=== PATIENT | female | born 1960 | race Caucasian/White ===

== ENCOUNTER → 2024-04-21 07:00 | Outpatient (BNV) | payer MEDICAID, SELFPAY | PROVIDERS: Admitting Provider Internal Medicine Pulmonary Disease; Emergency Provider Internal Medicine; Visit Provider Internal Medicine Cardiovascular Disease | DX: I35.2 Nonrheumatic aortic (valve) stenosis with insufficiency (principal); I34.81 Nonrheumatic mitral (valve) annulus calcification; I46.9 Cardiac arrest, cause unspecified; I27.20 Pulmonary hypertension, unspecified | CPT/HCPCS: 93306 ==

== ENCOUNTER 2024-04-21 08:02 | Inpatient (IN) | payer MEDICAID, OTHER, SELFPAY ==
[2024-04-21] VITALS (42 sets, daily range): BP systolic 81–211; BP diastolic 43–86; PULSE 49–82; RESP 18–26; TEMP 33–37.5; O2SAT 93–100; BMI 27.2
--- NOTE | ~2024-04-21 | XR_ITS ---
EXAMINATION: XR CHEST CLINICAL INFORMATION: Low tidal volume COMPARISON: 04/21/2024 and selected prior TECHNIQUE: AP portable semiupright view of the chest was obtained. FINDINGS: Endotracheal tube tip midline approximately 3 cm above viky. Right IJ central venous catheter tip at cavoatrial junction. Enteric tube passes beneath diaphragm with side port at expected level of the EG junction. Grossly stable lung volumes, apparent decrease on the right likely due to patient rotation. Bilateral hilar prominence and perihilar opacities slightly improved. Suspect improving edema. Loss of clarity of right diaphragm, suspect developing trace effusion. No pneumothorax. Nonobstructive gas pattern. No acute osseous finding. XR/XR chest 1V IMPRESSION: Favor improving pulmonary edema. Electronically signed by: Bryant Beckett MD 04/22/2024 10:41 AM EDT
--- NOTE | ~2024-04-21 | CT_ITS ---
EXAMINATION: CT HEAD WITHOUT CONTRAST CLINICAL INFORMATION: Altered mental status COMPARISON: None available. TECHNIQUE: Contiguous axial imaging was performed from the skull base to vertex without intravenous administration of contrast. This CT examination was performed using dose optimization techniques as appropriate, variously including the following: *Automated exposure control *Adjustment of mA and/or kV according to patient size (this includes techniques or standardized protocols for targeted exams where dose is matched to indication/reason for exam; i.e. extremities or head) *Use of iterative reconstruction technique DLP: 1612 mGy-cm FINDINGS: There is no evidence of acute intracranial hemorrhage, however, there is apparent loss of aly-white differentiation concerning for hypoxic ischemic injury. No abnormal mass effect or midline shift is appreciated. No extra-axial fluid collections. The ventricular system and cortical sulci are mildly prominent, consistent with age-appropriate volume loss. There are areas of low density in the periventricular and subcortical white matter, most consistent with sequelae of microvascular ischemic change. Soft tissues and osseous structures are unremarkable. There are calcifications of the cavernous internal carotid arteries. Stent noted within the left cavernous ICA. Several opacified ethmoid air cells. Other visualized paranasal sinuses and mastoid air cells are well aerated. CT/CT head/brain wo IV con IMPRESSION: Apparent loss of aly-white differentiation concerning for hypoxic ischemic injury. Clinical correlation recommended. Further evaluation with MRI or follow-up CT imaging likely warranted. Electronically signed by: Be Suggs MD 04/21/2024 11:11 AM EDT
--- NOTE | ~2024-04-21 | CT_ITS ---
EXAMINATION: CT ANGIOGRAM CHEST CLINICAL INFORMATION: Shortness of breath. Altered mental status. Cardiac arrest. COMPARISON: Chest x-ray 04/21/2024. TECHNIQUE: Multiple axial images were obtained through the chest after the administration of 85 mL of Omnipaque 350 intravenous contrast. Extensive vascular post-processing including two-dimensional and three-dimensional reformatted images were created and reviewed on an independent workstation. This CT examination was performed using dose optimization techniques as appropriate, variously including the following: *Automated exposure control *Adjustment of mA and/or kV according to patient size (this includes techniques or standardized protocols for targeted exams where dose is matched to indication/reason for exam; i.e. extremities or head) *Use of iterative reconstruction technique DLP: 352 mGy-cm FINDINGS: Contrast bolus: Satisfactory. Pulmonary arteries: Overlying ECG leads and arms at sides result in significant artifact. No large central or segmental pulmonary emboli. Sensitivity for subsegmental emboli reduced. Lungs: Bronchial wall thickening. Multifocal patchy and confluent consolidation in the posterior upper and lower lungs bilaterally. Aspiration pneumonia is a consideration. Endotracheal tube tip 2 cm above viky. Aorta: Moderate atherosclerotic peripheral vascular disease. No obvious aneurysm or dissection on dextro phase imaging. Coronary arteries: Moderate coronary artery disease. Mediastinum: No mass or adenopathy. Cardiomegaly. No evidence of LV strain. Pleura: Trace pleural effusions bilaterally. No pericardial effusion. No pneumothorax. Chest wall: No obvious mass or adenopathy. Bubble of air in the right anterior chest wall is likely venous. Upper abdomen: Reflux of contrast into the IVC and hepatic veins indicates increased right heart pressures. Nasogastric tube tip in the body of the stomach. Atherosclerotic peripheral vascular disease. Colonic diverticulosis. Osseous structures: No rib fracture. Left L5 sclerotic lesion likely a bone island. CT/CT angio chest PE protocol IMPRESSION: 1. No pulmonary embolism identified. Exam is degraded by artifact. 2. Extensive bilateral predominantly dependent lung consolidation with thick-walled airways. Aspiration pneumonia is a concern. 3. Increased right heart pressures with reflux of contrast into the IVC and hepatic veins. Consider echocardiography. Fleischner guidelines were followed. Electronically signed by: Bryant Beckett MD 04/21/2024 10:51 AM EDT
--- NOTE | ~2024-04-21 | XR_ITS ---
EXAMINATION: XR CHEST CLINICAL INFORMATION: Central line placement COMPARISON: Chest x-ray earlier this morning TECHNIQUE: Frontal view of the chest was obtained. FINDINGS: Endotracheal tube terminates approximately 3.6 cm above the level the viky. Enteric tube terminates below the level of the diaphragm. Interval insertion of right-sided jugular catheter which terminates within the distal SVC. The cardiac silhouette is enlarged. Atherosclerotic disease of the aortic arch. The lungs are well aerated. There is patchy bilateral airspace disease. There is no gross pleural effusion. No pneumothorax. XR/XR chest 1V IMPRESSION: 1. Support apparatus in expected position. 2. Interval insertion of right-sided jugular catheter which terminates within the distal SVC. Electronically signed by: Be Suggs MD 04/21/2024 11:38 AM EDT
--- NOTE | ~2024-04-21 | CT_ITS ---
EXAMINATION: CT ABDOMEN AND PELVIS WITH CONTRAST CLINICAL INFORMATION: Abdominal distention. Cardiac arrest. Altered mental status. Shortness of breath. COMPARISON: Today's CT angiography. TECHNIQUE: Multidetector volumetric images were obtained from the superior aspect of the liver through the pubic symphysis following administration 100 mL of Omnipaque 350 intravenous contrast. Sagittal and coronal reformatted images were obtained on the technologist's workstation. Oral contrast: No This CT examination was performed using dose optimization techniques as appropriate, variously including the following: *Automated exposure control *Adjustment of mA and/or kV according to patient size (this includes techniques or standardized protocols for targeted exams where dose is matched to indication/reason for exam; i.e. extremities or head) *Use of iterative reconstruction technique DLP: 549 mGy-cm FINDINGS: LUNG BASES: Bibasilar consolidation and trace effusions. Mitral valve annular calcifications. Coronary calcifications. LIVER, GALLBLADDER, AND BILIARY TREE: Reflux of contrast into the IVC and hepatic veins indicates increased right heart pressures. Patchy hepatic attenuation raising the possibility of congestive hepatopathy. Correlate with liver function studies. Trace ascites. Gallbladder: The gallbladder wall is markedly thickened and edematous. There is a stone impacted in the gallbladder fundus. Clinical correlation advised to exclude acute cholecystitis. There is periportal fat stranding. No obvious biliary ductal dilation. No pneumobilia. PANCREAS: Uniform pancreatic enhancement without ductal dilation or mass. No convincing evidence of pancreatitis with fat stranding predominating in the cara hepatis and around vascular structures. SPLEEN: Unremarkable. ADRENAL GLANDS: A 11 mm enhancing left adrenal mass (series 27 image ). Recommend adrenal protocol CT. Normal right adrenal gland. KIDNEYS AND URETERS: Symmetric renal function without hydronephrosis. Subcentimeter cortical hypodensities too small to characterize further. BLADDER: A balloon tip catheter is coiled within the urinary bladder, air is presumably iatrogenic GASTROINTESTINAL TRACT: Sigmoid predominant diverticulosis. No convincing evidence of diverticulitis. Mild small bowel dilation without transition point to suggest obstruction. Mesenteric fat stranding. Favor ileus. Attention on follow-up. Trace ascites. No free intraperitoneal air. ABDOMINAL WALL: No significant hernia is appreciated. LYMPH NODES: Normal. VASCULAR: Moderate atherosclerotic peripheral vascular disease. PELVIC VISCERA: The patient appears to be status post hysterectomy. No adnexal mass. There is a venous gas in the right groin, clinical correlation advised. OSSEOUS STRUCTURES: A small sclerotic lesion in the anterior left fifth rib likely a bone island. No definite displaced rib fractures with history of cardiac arrest. CT/CT abdomen pelvis w IV con IMPRESSION: 1. Heterogeneous hepatic enhancement with periportal and pericholecystic edema and fat stranding. Suspect congestive hepatopathy. Correlate with liver function studies. Consider right upper quadrant ultrasound. 2. Cholelithiasis. Thick-walled gallbladder. No biliary ductal dilation. Cannot exclude acute cholecystitis. 3. Mildly dilated small bowel loops with mesenteric fat stranding. No transition point to suggest obstruction. Favor ileus. 4. Bibasilar lung consolidation and effusions. Suspect aspiration pneumonia. Fleischner guidelines were followed. Electronically signed by: Bryant Beckett MD 04/21/2024 10:40 AM EDT
--- NOTE | ~2024-04-21 | XR_ITS ---
EXAMINATION: XR CHEST CLINICAL INFORMATION: OG placement COMPARISON: 06/16/2017 TECHNIQUE: AP supine portable view of the chest was obtained. FINDINGS: Enteric tube passes beneath diaphragm with side port below the level of the diaphragm. Endotracheal tube tip midline projecting 2 cm above viky. Diffuse nonspecific increase in lung markings. No effusion or pneumothorax. Increased prominence of the heart and mediastinum. XR/XR chest 1V IMPRESSION: Enteric tube passes beneath diaphragm. Prominent heart, mediastinum and central vasculature on supine imaging. Electronically signed by: Bryant Beckett MD 04/21/2024 09:32 AM EDT
--- NOTE | 2024-04-21 07:00 | CA_ITS ---
Transthoracic Echocardiogram Patient (Last, First, Middle): Oumou Laura, Gender: Female Date of : 1960 Age: 64 Procedure Date: 04/21/2024 Procedure Type: Transthoracic Echocardiogram Location: ICU Height: 162.56 cm Weight: 72.01 kg BSA: 1.77 m2 Heart Rate: bpm BP: 175 / 73 mmHg Psychological Tests Sales Agent: ZEE Myers MD: Tony Stiles MD Symptoms: s/p cardiac arrest Study Quality: Technically Difficult/Contrast Conclusions: - Normal left ventricular cavity size. There is moderately increased left ventricular wall thickness. The left ventricular systolic function is hyperdynamic. The visually estimated ejection fraction is >70%. - Elevated filling pressures. - Normal right ventricular cavity size and systolic function. - The left atrium is mildly dilated. - There is mild aortic valve stenosis. There is mild to moderate aortic valve regurgitation. - Normal right atrial pressure. Moderate pulmonary hypertension is present. Findings Procedure Information Contrast agent, definity, is being given per protocol without apparent complications. Left Ventricle Normal left ventricular cavity size. There is moderately increased left ventricular wall thickness. The left ventricular systolic function is hyperdynamic. The visually estimated ejection fraction is >70%. There is no evidence of regional wall motion abnormalities. Abnormal diastolic function is noted. Spectral Doppler is indicative of an impaired relaxation filling pattern. Elevated filling pressures. Right Ventricle Normal right ventricular cavity size and systolic function. Atria The left atrium is mildly dilated. Aortic Valve There is a normal trileaflet aortic valve. There is mild aortic valve stenosis. There is mild to moderate aortic valve regurgitation. Mitral Valve There is moderate mitral annular calcification. There is no mitral valve regurgitation. There is no mitral valve stenosis. Pulmonic Valve The pulmonic valve was not well visualized. Tricuspid Valve Normal tricuspid valve structure. There is trace tricuspid valve regurgitation. The right ventricular systolic pressure is 55 mmHg. Normal right atrial pressure. Moderate pulmonary hypertension is present. Great Vessels All visible segments of the aorta are normal in size. Venous The inferior vena cava is normal in size and collapses greater than 50% with inspiration. Pericardium/Pleural There is no evidence of pericardial effusion. Prior Study Comparison No prior study available for comparison. Measurements 2D Linear Measurements IVSd: 1.26 0.6-0.9/0.6-1.0 cm LVIDd: 3.93 3.9-5.3/4.2-5.9 cm LVIDd Index: 2.22 2.4-3.2/2.2-3.1 cm/m2 LVIDs: 2.62 2.0-3.6 cm LVPWd: 1.34 0.7-1.1 cm Ao Root: 2.70 2.1-3.5 cm LA Diam: 4.20 2.7-3.8/3.0-4.0 cm LAIDs Index: 2.37 1.5-2.3 cm/m2 LV Mass: 226.46 67-162/88-224 g LV Mass Index: 127.94 43-95/49-115 g/m2 LVOT Diam: 2.00 3.0+(-)1.3 cm Mitral Valve MV VTI: 0.58 MV Pk Dami: 1.79 MV Mn Dami: 1.24 MV Pk Grad: 13.00 MV Mn Grad: 7.00 MV Pk E: 1.63 MV PK A: 1.22 MV Decel Time: 340.00 E/A: 1.30 E'Lateral: 4.35 E'Medial: 4.35 E/E' Med: 37.50 E/E' Lat: 37.50 PHT: 100.00 MVA PHT: 2.20 MVA Continuity: 1.92 Decel [place]: 4.80 Aortic Valve AoV Pk Dami: 2.37 AoV Mn Dami: 1.38 AoV VTI: 0.53 AoV Pk Grad: 22.00 Aov Mn Grad: 9.00 LAURA Cont.VTI: 2.10 AI Pk Dami: 4.78 AI [place]: 2.73 LVOT LVOT Pk Dami: 1.58 LVOT Mn Dami: 1.09 LVOT VTI: 0.35 LVOT Pk Grad: 10.00 LVOT Mn Grad: 5.00 LVOT Diam: 2.00 LVOT Area: 3.14 Diastolic Function MV Pk E: 1.63 MV Pk A: 1.22 E/A: 1.30 E'Medial: 4.35 E/E' Med: 37.50 E' Laterial: 4.35 E/E' Lat: 37.50 Right Ventricle TAPSE (mm): 23.00 TVS' Dami: 5.77 Tricuspid Valve TR Pk Dami: 3.41 TR Pk Grad: 47.00 RA Press: 8.00 RVSP: 55.00 Great Vessels Aorta Ao Root-2D: 2.70 2.0-3.7 cm Ao Asc: 2.60 2.1-3.4 cm Updated in Other Vendor System with Status of Final Juan Jose Vincent MD electronically signed on 04/21/2024 2:20:17 PM with status of Final
--- NOTE | 2024-04-21 08:03 | MHC.EDTECH ---
BROUGHT IN BY CHAPIS TERESA...NOT GIOVANNI, IT WAS THIS WRITERS ERROR. VINIB
[2024-04-21] MEDS: Etomidate 20 MG/10 ML VIAL IVPUSH (08:09)
[2024-04-21] MEDS: Rocuronium Bromide 50 MG/5 ML VIAL IVPUSH (08:09)
[2024-04-21] MEDS: Magnesium Sulfate/H2O 2 GM/50 ML PIGGYBACK IV (08:20)
--- NOTE | 2024-04-21 08:24 | ECG_ITS ---
Test Reason : CARDIAC ARREST Blood Pressure : / mmHG Vent. Rate : 071 BPM Atrial Rate : 000 BPM P-R Int : 000 ms QRS Dur : 104 ms QT Int : 486 ms P-R-T Axes : 000 005 097 degrees QTc Int : [address] & T wave abnormality, consider lateral ischemia Prolonged QT Abnormal ECG When compared with ECG of 05-MAY-2017 13:30, Atrial fibrillation has replaced Sinus rhythm QRS duration has increased Non-specific change in ST segment in Lateral leads QT has lengthened Referred By: Tony Stiles Electronically Signed By:ALICE TRONCOSO
[2024-04-21] MEDS: methylPREDNISolone Sod Succ 125 MG/2 ML VIAL IVPUSH (08:26)
--- NOTE | 2024-04-21 08:33 | PC.NURSE ---
patient 72kg. 5'2
--- NOTE | 2024-04-21 08:41 | PC.RT ---
Pt came in via EMS, OPA estabished, being bag valve mask ventilated, CPR in progress. ACLS care provided by [facility] ER staff. Pt intubated by CELESTE on first attempt w/ 7.5 ETT 22cm at the lip. Tube confirmed w/ bilateral breath sounds, condensation in tube, increase in O2 SATs, and colormetric CO2. Airway appeared edematous through glidescope. Pt bag ventilated by RT while ACLS care continued. Pt regained pulses, CPR was ceased and post resuscitative care was initiated. Pt was transfered to mechanical ventilation and faraz settings well. CXR taken and tube position confirmed.
[2024-04-21] MEDS: Norepinephrine Bitartrate/D5W 8 MG/250 ML PLAST..BAG 6.75 MG IVCONT (08:44)
--- NOTE | 2024-04-21 08:53 | ED_ITS ---
HPI - General Adult General Chief complaint: Cardiac Arrest/CPR Stated complaint: CARDIAC ARREST,ASYSTOLE,WITNESSED BY FAMILY Time Seen by Provider: 04/21/24 08:41 Source: EMS and other ([facility] ) Mode of arrival: EMS Limitations: other History of Present Illness ED Provider: Georges HPI narrative: This is a 64 yo f hx of anxiety, depression, cerebral aneurysm, hld, hypertrophic cardiomyopathy, OA, DM 2 presenting via ambulance for cardiac arrest unclear down time but witnessed by the family, delay in starting CPR per EMS since when they arrived patient was laying pulsless and compressions were not being done. According to EMS patient was having difficulty breathing per family , immediately when they arrived CPR was started as they were unable to palpate a pulse. CPR was done along the way to the hospital and 2 rounds of epinephrine were given. She arrived with an OPA airway ( they attempted ET tube w/o success en route) , R humeral IO and IV in L ac ( unclear if working or not). Her pupils nonreactive she is unable to answer questions. EMS and fire did not know much about her medical history as family was Citizen Of [place] speaking and this was a language barrier. Immediately upon arrival [facility] and ACLS protocol initiated. CPR, rapid sequence intubation w/ placement of ET tube w/o difficulty. Related Data Home Medications ?Medication ?Instructions ?Recorded ?Confirmed aripiprazole 5 mg tablet 5 mg PO DAILY 04/21/24 aspirin 81 mg tablet,delayed 81 mg PO DAILY 04/21/24 release atorvastatin 80 mg tablet 80 mg PO DAILY 04/21/24 carvedilol 25 mg tablet 25 mg PO BID 04/21/24 clonazepam 0.5 mg tablet 0.5 mg PO BID PRN Anxiety 04/21/24 diphenhydramine HCl 25 mg capsule 25 mg PO BEDTIME 04/21/24 docusate sodium 100 mg capsule 100 mg PO BID 04/21/24 losartan 100 mg tablet 100 mg PO DAILY 04/21/24 metformin 500 mg tablet,extended 500 mg PO BID 04/21/24 release 24 hr nicotine (polacrilex) 4 mg buccal 4 mg PO Q2H PRN Nicotine Cravings 04/21/24 lozenge polyethylene glycol 3350 17 17 g PO DAILY 04/21/24 gram/dose oral powder venlafaxine 150 mg 150 mg PO DAILY 10/05/24 capsule,extended release 24 hr venlafaxine 75 mg capsule,extended 75 mg PO DAILY 04/21/24 release 24 hr verapamil 180 mg 24 hr 180 mg PO DAILY 04/21/24 capsule,extended release zolpidem 10 mg tablet 10 mg PO BEDTIME PRN Insomnia 04/21/24 Allergies Allergy/AdvReac Type Severity Reaction Status Date / Time No Known Allergies Allergy Unverified 04/21/24 10:12 [No Known Allergies*] Review of Systems 2 Review of Systems: Yes Unobtainable due to mental status [facility] Past Medical History Source: old records reviewed ([facility]), obtained from family and nursing notes reviewed Social History Social History Advance Directives: No Advance Directives Information Provided: No Physical Exam ED Vital Signs: Vital Signs - 24 hr 04/21/24 08:44 04/21/24 08:45 04/21/24 09:17 Temperature Pulse Rate 59 53 Respiratory Rate Blood Pressure 83/47 L 92/45 L Pulse Oximetry Oxygen Delivery Method Fraction of Inspired Oxygen 100 04/21/24 09:30 04/21/24 09:58 04/21/24 10:14 Temperature 94.1 F L 93.6 F L 93.4 F L Pulse Rate 54 53 55 Respiratory Rate 18 18 18 Blood Pressure 100/48 L 109/51 L 121/55 L Pulse Oximetry 100 98 100 Oxygen Delivery Method Mechanical Ventilation Mechanical Ventilation Mechanical Ventilation Fraction of Inspired Oxygen 04/21/24 10:28 Temperature 93.4 F L Pulse Rate 55 Respiratory Rate 18 Blood Pressure 126/55 L Pulse Oximetry 95 Oxygen Delivery Method Mechanical Ventilation Fraction of Inspired Oxygen BMI result Body Mass Index 27.2 vss Appearance: Patient arrives in acute respiratory distress. Not answering questions. Unresponsive. Head: Normocephalic, atraumatic, no step-offs or deformities Eyes: Pupils equal 2 mm , nonreactive. Neck: Normal inspection.? Neck supple.? CVS: asystolic on arrival bhupendra on and working Respiratory: + respiratory distress.? Breath sounds diminished b/l.? Abdomen: Soft and distended. Skin: Skin warm and dry.? Normal skin color.? Normal skin turgor.? Extremities: No lower extremity edema.? Neuro: Patient arrives in acute respiratory distress. Not answering questions. Unresponsive. Course Reevaluation(s) Reevaluation #1: Patient's CBC with leukopenia nonspecific noted to be anemic 6.7 and 23.7. Unclear if this is around patient's baseline as I do not have previous labs to compare with. Platelet count of 115. Chemistry pending. VBG pending. To note labs initially were likely arterial. Time: 09:10 Reevaluation #2: Pressure soft, discussed W/ Dr. Arango initiating 2nd pressor. Agrees w/ me. Vasopressin initiated at this time 0.1 units/minute. Time: 09:15 Reevaluation #3: VBG with venous pH of 6.82 this sample was obtained during CPR and this is likely why. Repeat ABG ordered and pending. Time: 09:19 Additional Reevaluation(s): I placed a 16 central line to the right IJ no complications post procedure xray looks good no signs of pneumothorax. ICU to assume care at this time. Repeat labs with a more accurate depiction of patient's case resulted after patient in care of ICU, CBC with leukocytosis 17.4. Patient not noted to be anemic on 2nd drop. No signs of lower GI bleed. Chemistry with elevated potassium 6.2. Anion gap of 24. Lactic acid of 12.4 she was given a 30 cc/kilos bolus as well as antibiotic coverage for broad-spectrum. I did add azithromycin as I did have some concern for aspiration pneumonia. Flu/covid/rsv negative. Medications Administered Generic Name Dose Route Start Last Admin Trade Name Freq PRN Reason Stop Dose Admin Norepinephrine Bitartrate 8 mg in 250 mls @ 0 mls/hr 04/21/24 09:15 04/21/24 08:44 Levophed IVCONT 0.05 mcg/kg/min .Q0M BINA 6.75 mls/hr Administration Protocol Per Protocol Vasopressin 20 unit in 100 mls @ 3 mls/hr 04/21/24 09:15 04/21/24 09:17 Vasostrict IVCONT 0.01 unit/min .Q24H BINA 3 mls/hr Administration 0.01 UNIT/MIN Magnesium Sulfate 2 gm in 50 mls @ 25 mls/hr 04/21/24 09:56 04/21/24 08:20 Magnesium Sulfate/H2o IV 04/21/24 11:55 25 mls/hr ONCE ONE Administration Discontinued Medications Generic Name Dose Route Start Last Admin Trade Name Freq PRN Reason Stop Dose Admin Etomidate 20 mg 04/21/24 09:01 04/21/24 08:09 Etomidate 20 Mg/10 Ml Vial IVPUSH 04/21/24 09:02 20 mg ONCE ONE Administration Fentanyl 100 mcg 04/21/24 09:56 04/21/24 09:00 Fentanyl Citrate/Pf 100 Mcg/2 Ml Vial IVPUSH 04/21/24 09:57 100 mcg ONCE ONE Administration Protocol Ceftriaxone Sodium 2 gm/ 50 mls @ 100 mls/hr 04/21/24 09:23 04/21/24 11:00 Sodium Chloride IV 04/21/24 09:52 100 mls/hr ONCE ONE Administration Iohexol 85 ml 04/21/24 09:56 04/21/24 09:57 Iohexol 350 Mg/Ml 100 Ml Infus..Btl IV 04/21/24 09:57 85 ml ONCE ONE Administration Methylprednisolone Sodium Succinate 125 mg 04/21/24 09:56 04/21/24 08:26 Methylprednisolone Sod Succ 125 Mg/2 Ml Vial IVPUSH 04/21/24 09:57 125 mg ONCE ONE Administration Rocuronium [place] 50 mg 04/21/24 08:58 04/21/24 08:09 Rocuronium [place] 50 Mg/5 Ml Vial IVPUSH 04/21/24 08:59 50 mg ONCE ONE Administration Procedures Central Line Placement Right IJ: Time Out Performed: Yes Patient Placed on Monitor/Pulse Ox: Yes MD Prep: mask and gown Central Line Prep: Chlorhexidine scrub and sterile drapes applied Ultrasound Used for Placement: Yes Central Line Lumen Inserted: triple Post Procedure: sutured in place, good blood return, all ports aspirated, flushed, capped and sterile dressing applied Post Procedure X-Ray: tip of catheter in good position and no pneumothorax seen Patient Tolerated Procedure: well Complications: none Intubation Intubation Type:: Emergency Endotracheal Intubation Intubation Date:: 04/21/24 Intubation Time:: 08:08 Time out performed: Yes sedative: Etomidate Mg Given: 20 paralytic: Rocuronium Mg Given: 50 Laryngoscope: fiber optic video scope Assist Device Used: fiber optic device ET Tube Size: 7.5 ET Tube Uncuffed: No Tube Secured Depth (cm): 22 Tube Secured Location: lips Tube Placement Confirmation: visualized tube passing through cords, equal breath sounds bilaterally, no breath sounds over epigastrium and confirmation by capnometry Patient Tolerated Procedure: well Intubation Complications: none IO Right Tibia: Time Out Performed: Yes IO Instrument Used to Penetrate the Cortex: battery powered IO drill Patient Tolerated Procedure: well Complications: none Additional Comments: This PAC started IO Medical Decision Making Medical Decision Making [facility] Narrative: entire case done w/ attending Dr. Arango at the bedside for guidance and supervision 0800 64 year old female presents w/ ems and fire for cardiac arrest unclear down time, per family patient was short of breath. ( please see HPI) On initial exam patient unresponsive diminished bs b/l on Bhupendra Hx and pe concerning for primary respiratory arrest less likely primarycardiac arrest. Metabolic derangements and possible causes for respiratory arrest will be investigated. PE, PNA and COPD will be considered. Immediately upon patient arrival life saving measures initiated CPR and rapid sequence intubation ( etomidate and rocuronium given) done at bedside w/ + color change and improvement in O2 SAT Patient was given a total of 8 rounds of epi, 1 round of bibarb, 2gm of mag and 125 mg of solumedrol. Significant improvement noted after mag & solumedrol. Bedside cardiac US w/ contractility noted and ROSC w/ strong pulses. Hypothermic after w/ bear hugger initiated. Hypotensive with Levophed ordered. Please refer to nursing med sheet to see what meds were given during CPR and times of each. Differential Diagnosis Differential Diagnoses: The differential diagnosis associated with the presentation includes (Hx and pe concerning for primary respiratory arrest less likely primarycardiac arrest. Metabolic derangements and possible causes for respiratory arrest will be investigated. PE, PNA and COPD will be considered. ) Admission/Observation Consideration of admission/observation: Escalation of care including admission/observation considered (Likely ICU admission ) Consult Healthcare Provider Management of the patient was discussed with: Casual Shoe Inspector Attending Dr. Arango @ bedside throughout Lab Data [facility] Lab Attestation statement: I reviewed the patient's lab results. 04/21/24 10:25 04/21/24 10:25 Labs: Lab Results 04/21/24 04/21/24 04/21/24 Range/Units 08:26 09:04 09:21 WBC 4.0 L (4.8-10.8) X10*3/uL RBC 2.67 L (4.20-5.50) X10*6/uL Hgb 6.7 L* (12.0-16.0) g/dl Hct 23.7 L (37.0-47.0) % MCV 88.8 (80.0-98.0) fL MCH 25.1 L (27.0-33.0) pg MCHC 28.3 L (31.0-35.0) g/dl RDW 18.7 H (11.0-16.0) % Plt Count 115 L (160-400) X10*3/uL MPV 10.8 (9.4-12.3) fL Immature Gran % (Auto) Cancelled Neut % (Auto) Cancelled Lymph % (Auto) Cancelled [place] % (Auto) Cancelled Eos % (Auto) Cancelled Baso % (Auto) Cancelled Lymph # (Auto) Cancelled [place] # (Auto) Cancelled Eos # (Auto) Cancelled Baso # (Auto) Cancelled Abs Immat Gran (auto) Cancelled Absolute Neuts (auto) Cancelled Absolute Nucleated RBC 0.040 H (0.0-0.012) X10*3/uL Nucleated RBC % (auto) 1.0 H (0.0-0.2) /100WBC Neutrophils % (Manual) 43 L (45-73) % Band Neutrophils % 7 H (3-5) % Lymphocytes % (Manual) 43 H (20-40) % Monocytes % (Manual) 1 L (2-11) % Eosinophils % (Manual) 1 (0-4) % Metamyelocytes % 1 % Myelocytes % 4 % Abs Neuts (Manual) 2.0 (2.0-8.3) X10*3/uL Lymphocytes # (Manual) 1.7 (1.2-4.9) X10*3/uL Myelocytes # 0.2 X10*/uL Nucleated RBCs 1 H (0-0) /100WBC Platelet Estimate DECREASED (NORMAL) Large Platelets PRESENT Plt Morphology Comment NOTED RBC Morphology NOTED Spherocytes 1+ (0-2) /OIF Ovalocytes 1+ (5-14) /OIF Lee Cells 2+ (3-5) /OIF Acanthocytes (Spur) 1+ (0-2) /OIF Hold Purple Top SEE NOTE PT 11.8 (10.9-12.4) SEC INR 1.0 (0.9-1.1) Hold Blue Top SEE NOTE O2 Saturation % ABG pH at Pt Temp (7.35-7.45) ABG pCO2 at Pt Temp (32-45) mmHg ABG pO2 at Pt Temp (83-108) mmHg ABG HCO3 (22-26) mmol/L ABG Base Excess (Actual) mmol/L VBG pH 6.82 L* (7.32-7.43) VBG pCO2 47 mmHg VBG pO2 228 mmHg VBG HCO3 8 L (22-26) mmol/L VBG O2 Saturation 99.0 % VBG Base Excess -25.1 mmol/L Sodium 146 H (135-145) mmol/L Potassium 5.6 H (3.3-5.1) mmol/L Chloride 109 H (96-108) mmol/L Carbon Dioxide 10 L* (22-29) mmol/L Anion Gap 33 H (12-20) BUN 12 (9-16) mg/dL Creatinine 1.16 (0.5-1.4) mg/dL Estim Creat Clear Calc TNP Estimated GFR 47 Random Glucose 355 H* (60-115) mg/dL Lactic Acid (0.5-2.0) mmol/L Calcium 9.4 (8.4-10.2) mg/dL Magnesium 5.9 H* (1.6-2.6) mg/dL Total Bilirubin 0.2 (0.0-1.0) mg/dL AST 36 H (5-31) U/L ALT 36 H (0-31) U/L Alkaline Phosphatase 96 (39-117) U/L Troponin I High Sens 6.1 (<3.5-17.0) ng/L Total Protein 5.7 L (6.5-8.0) g/dL Albumin 3.0 L (3.5-5.0) g/dL Hold Yellow Top See Note Influenza Type A (PCR) NEGATIVE (Negative) Influenza Type B (PCR) NEGATIVE (Negative) RSV RNA Qual (PCR) NEGATIVE (Negative) SARS-CoV-2 RNA (RT-PCR) NEGATIVE (Negative) 04/21/24 04/21/24 Range/Units 10:21 10:25 WBC 17.4 H (4.8-10.8) X10*3/uL RBC 4.29 D (4.20-5.50) X10*6/uL Hgb 10.6 L D (12.0-16.0) g/dl Hct 35.4 L D (37.0-47.0) % MCV 82.5 D (80.0-98.0) fL MCH 24.7 L (27.0-33.0) pg MCHC 29.9 L (31.0-35.0) g/dl RDW 18.7 H (11.0-16.0) % Plt Count 172 D (160-400) X10*3/uL MPV 10.8 (9.4-12.3) fL Immature Gran % (Auto) 7.0 H Neut % (Auto) 75.0 H Lymph % (Auto) 15.3 L [place] % (Auto) 2.0 Eos % (Auto) 0.4 Baso % (Auto) 0.3 Lymph # (Auto) 2.7 [place] # (Auto) 0.4 Eos # (Auto) 0.1 Baso # (Auto) 0.1 Abs Immat Gran (auto) 1.22 H Absolute Neuts (auto) 13.0 H Absolute Nucleated RBC 0.060 H (0.0-0.012) X10*3/uL Nucleated RBC % (auto) 0.3 H (0.0-0.2) /100WBC Neutrophils % (Manual) (45-73) % Band Neutrophils % (3-5) % Lymphocytes % (Manual) (20-40) % Monocytes % (Manual) (2-11) % Eosinophils % (Manual) (0-4) % Metamyelocytes % % Myelocytes % % Abs Neuts (Manual) (2.0-8.3) X10*3/uL Lymphocytes # (Manual) (1.2-4.9) X10*3/uL Myelocytes # X10*/uL Nucleated RBCs (0-0) /100WBC Platelet Estimate (NORMAL) Large Platelets Plt Morphology Comment RBC Morphology Spherocytes /OIF Ovalocytes /OIF Pep Cells /OIF Acanthocytes (Spur) /OIF Hold Purple Top PT (10.9-12.4) SEC INR (0.9-1.1) Hold Blue Top O2 Saturation 97.0 % ABG pH at Pt Temp 7.01 L* (7.35-7.45) ABG pCO2 at Pt Temp 42 (32-45) mmHg ABG pO2 at Pt Temp 123 H (83-108) mmHg ABG HCO3 11 L (22-26) mmol/L ABG Base Excess (Actual) -19.0 mmol/L VBG pH (7.32-7.43) VBG pCO2 mmHg VBG pO2 mmHg VBG HCO3 (22-26) mmol/L VBG O2 Saturation % VBG Base Excess mmol/L Sodium 143 (135-145) mmol/L Potassium 6.2 H* (3.3-5.1) mmol/L Chloride 114 H (96-108) mmol/L Carbon Dioxide 11 L (22-29) mmol/L Anion Gap 24 H (12-20) BUN 12 (9-16) mg/dL Creatinine 1.05 (0.5-1.4) mg/dL Estim Creat Clear Calc 54.0 Estimated GFR 53 Random Glucose 165 H (60-115) mg/dL Lactic Acid 12.4 H* (0.5-2.0) mmol/L Calcium 7.1 L D (8.4-10.2) mg/dL Magnesium 2.9 H (1.6-2.6) mg/dL Total Bilirubin 0.4 (0.0-1.0) mg/dL AST 155 H (5-31) U/L ALT 124 H (0-31) U/L Alkaline Phosphatase 117 (39-117) U/L Troponin I High Sens (<3.5-17.0) ng/L Total Protein 5.1 L (6.5-8.0) g/dL Albumin 2.6 L (3.5-5.0) g/dL Hold Yellow Top Influenza Type A (PCR) (Negative) Influenza Type B (PCR) (Negative) RSV RNA Qual (PCR) (Negative) SARS-CoV-2 RNA (RT-PCR) (Negative) ABG Data Attestation ABG: I personally reviewed and interpreted this ABG as follows: Independent Interpretation I performed an independent interpretation of an: Plain X-Ray and CT Scan (CT/CT angio chest PE protocol IMPRESSION: 1. No pulmonary embolism identified. Exam is degraded by artifact. 2. Extensive bilateral predominantly dependent lung consolidation with thick-walled airways. Aspiration pneumonia is a concern. 3. Increased right heart pressures with reflux of contrast) Interpretation: Initially VBG with a pH of 6.82 this was obtained during cardiac arrest/respiratory distress. PH improved to 7.01 with an elevated PO2 on 123 and a bicarb of 11 after. Radiology Impression Discussion of test interpretation with radiology: I have reviewed the radiologist's reading. External Record Review External record reviewed: Outpatient record ([facility] medical records viewed on [email or web address] ) Prescription Management I considered prescription management with: Antibiotic (Due to presentation will cover with 2 g of ceftriaxone. Based off imaging will determine if azithromycin is to be added.) Chronic Conditions Patient?s care impacted by: Diabetes, Hypertension and Other (see HPI ) Critical Care Time Critical Care Time Critical Care Time: Yes Total Critical Care Time: 45 Attestation: I attest to this time spent taking care of the patient, obtaining history, physical, reviewing labs, imaging, treatment of patients condition +/- specialist/hospitalist consult Discharge Plan Discharge Clinical Impression: Acute respiratory failure, Pneumonia, Cardiac arrest, Cholelithiasis Patient Disposition: Admitted As Inpatient
[2024-04-21] MEDS: fentaNYL citrate/PF 100 MCG/2 ML VIAL IVPUSH (09:00)
[2024-04-21 09:10] LABS: Venous Blood Gas Refer to POC result
[2024-04-21 09:11] LABS: VBG Base Excess -25.1 mmol/L; VBG HCO3 8 mmol/L (22-26); VBG pCO2 47 mmHg; VBG pH 6.82 (7.32-7.43); VBG pO2 228 mmHg
[2024-04-21 09:14] LABS: Troponin-I High Sensitivity 6.1 ng/L (<3.5-17.0)
[2024-04-21] MEDS: Vasopressin 20 UNIT/100 ML INFUS..BTL 3 UNIT IVCONT (09:17)
[2024-04-21 09:23] LABS: Alanine Aminotransferase 36 U/L (0-31); Alkaline Phosphatase 96 U/L (39-117); Anion Gap 33 (12-20); Aspartate Amino Transferase 36 U/L (5-31); Bilirubin Total 0.2 mg/dL (0.0-1.0); Blood Urea Nitrogen 12 mg/dL (9-16); Calcium 9.4 mg/dL (8.4-10.2); Carbon Dioxide 10 mmol/L (22-29); Chloride 109 mmol/L (96-108); Estimated Glomerular Filt Rate 47; Glucose Random 355 mg/dL (60-115); Magnesium 5.9 mg/dL (1.6-2.6); Potassium 5.6 mmol/L (3.3-5.1); Sodium 146 mmol/L (135-145); Total Protein 5.7 g/dL (6.5-8.0)
[2024-04-21 09:28] LABS: Prothrombin Time 11.8 SEC (10.9-12.4)
[2024-04-21] MEDS: iohexoL 350 MG/ML 100 ML INFUS..BTL 85 ML IV (09:57)
[2024-04-21 10:13] LABS: Influenza A PCR NEGATIVE (Negative); Influenza B PCR NEGATIVE (Negative); Resp Syncy Virus RNA Qual PCR NEGATIVE (Negative); SARS COV2 PCR INHOUSE NEGATIVE (Negative)
[2024-04-21 10:24] LABS: ABG HCO3 11 mmol/L (22-26); ABG pCO2 42 mmHg (32-45); ABG pH 7.01 (7.35-7.45); ABG pO2 123 mmHg (83-108)
[2024-04-21 10:31] LABS: Hematocrit 35.4 % (37.0-47.0); Hemoglobin 10.6 g/dl (12.0-16.0); Mean Corpuscular HGB Conc 29.9 g/dl (31.0-35.0); Mean Corpuscular Hemoglobin 24.7 pg (27.0-33.0); Mean Corpuscular Volume 82.5 fL (80.0-98.0); Mean Platelet Volume 10.8 fL (9.4-12.3); NRBC Pct Auto 0.3 /100WBC (0.0-0.2); Platelet Count 172 X10*3/uL (160-400); Red Blood Count 4.29 X10*6/uL (4.20-5.50); Red Cell Distribution Width 18.7 % (11.0-16.0); White Blood Count 17.4 X10*3/uL (4.8-10.8)
[2024-04-21 10:59] LABS: Lactic Acid 12.4 mmol/L (0.5-2.0)
[2024-04-21 11:00] LABS: Alanine Aminotransferase 124 U/L (0-31); Albumin Level 2.6 g/dL (3.5-5.0); Alkaline Phosphatase 117 U/L (39-117); Anion Gap 24 (12-20); Aspartate Amino Transferase 155 U/L (5-31); Bilirubin Total 0.4 mg/dL (0.0-1.0); Blood Urea Nitrogen 12 mg/dL (9-16); Calcium 7.1 mg/dL (8.4-10.2); Carbon Dioxide 11 mmol/L (22-29); Chloride 114 mmol/L (96-108); Estimated Glomerular Filt Rate 53; Glucose Random 165 mg/dL (60-115); Magnesium 2.9 mg/dL (1.6-2.6); Potassium 6.2 mmol/L (3.3-5.1); Sodium 143 mmol/L (135-145); Total Protein 5.1 g/dL (6.5-8.0)
[2024-04-21] MEDS: cefTRIAXone sodium 2 GM in 0.9 % Sodium Chloride 50 ML IV (11:00)
[2024-04-21 11:48] LABS: Band Neutrophils Percent 8 % (3-5); Lymphocytes Absolute Manual 2.4 X10*3/uL (1.2-4.9); Lymphocytes Percent Manual 14 % (20-40); Metamyelocytes Absolute 0.3 X10*3/uL; Metamyelocytes Percent 2 %; Monocytes Absolute Manual 0.3 X10*3/uL (0.1-1.2); Monocytes Percent Manual 2 % (2-11); Myelocytes Absolute 0.2 X10*/uL; Myelocytes Percent 1 %; Neutrophils Absolute Manual 14.1 X10*3/uL (2.0-8.3); Neutrophils Percent Manual 73 % (45-73)
[2024-04-21 11:49] LABS: RBC Morphology NOTED
[2024-04-21 11:50] LABS: Acanthocytes 1+ (0-2) /OIF; Burr Cells 3+ (>5) /OIF; Ovalocytes 1+ (5-14) /OIF
[2024-04-21 11:52] LABS: Large Platelet PRESENT; Platelet Estimate NORMAL (NORMAL); Platelet Morphology Comment NOTED; Toxic Vacuolation PRESENT
[2024-04-21] MEDS: Sodium Bicarbonate 8.4% 50 MEQ/50 ML SYRINGE 100 MEQ IVPUSH (12:19)
--- NOTE | 2024-04-21 12:20 | PC.NURSE ---
Addendum entered by Shannan Colby RN 04/26/24 07:18: 2 liters NS infused via pressure bag hung at 0830 on 04/21/2024 both bags infused at approximately 0915 on 04/21/2024 Original Note: Patient arrived via EMS after a witnessed arrest at home. Family reports patient was coughing yesterday and and had extreme difficulty catching her breath after coming out of the bathroom prior to collapsing this morning. Upon arrival to ED kady in place, RSI meds given per bedside provider verbal order, respiratory at bedside , ED provider intubated with 7.5 tube, 21 at lip. IO to right shoulder placed by EMS and 20g IV placed in right AC by EMS not functioning upon arrival. 20g IV placed in left hand , 20g IV placed in right hand. IO also placed below right knee. x 2 liters NS infused via pressure bags. x1 amp bicarb, x 8 doses of epi, mag, and solumedrol given, rosc obtained at 0828. OG tube placed, placed at low intermittent suction with 80mls of dark brown stomach contents. Pupils dilated bilaterally. 16 fr 10 cc temp tensing tubbs placed with immediate 10mls of light yellow urine ouput. Bladder scanned for 16mls. Patient hypothermic placed on yashira hugger placed. Patient hypotensive verbal orders per provider at bedside to titrate presssor outside of facility titration policy. Despite levophed infusing patient continued to be hypotensive. , second pressure added with improvement in BP. 1 liter NS infusing through IO to keep IO patent. Patient with RASS -5, no sedation given. IO to right shoulder removed and pressure dressing placed. BP with improvement, levophed titrated down. Family at bedside aware of clinical situation and plan to transfer to ICU. Central line placed by provider at bedside, pressors infusing through central line. Report given to ICU nurse Marlena, and patient transferred accompanied by family to ICU.
[2024-04-21 12:28] LABS: Reflex Lactate? Lactic Acid Added
[2024-04-21] MEDS: Ampicillin Sodium/Sulbactam Na 3 GM in 0.9 % Sodium Chloride 100 ML IV ×3 (12:30→22:33)
[2024-04-21] MEDS: Sodium Bicarbonate 8.4% 150 MEQ in Dextrose 5 % 850 ML 100 MEQ IV ×2 (12:41→21:49)
[2024-04-21 13:30] LABS: ~Lactic Acid-LAB USE ONLY 7.7 mmol/L (0.5-2.0)
--- NOTE | 2024-04-21 13:33 | ECG_ITS ---
Test Reason : Cardiac Arrest Blood Pressure : / mmHG Vent. Rate : 065 BPM Atrial Rate : 065 BPM P-R Int : 182 ms QRS Dur : 084 ms QT Int : 502 ms P-R-T Axes : 034 -03 070 degrees QTc Int : 522 ms Normal sinus rhythm Prolonged QT Abnormal ECG When compared with ECG of 21-APR-2024 08:24, Normal sinus rhythm has replaced Atrial fibrillation ST-T wave changes have improved in lateral leads Referred By: Tony Stiles Electronically Signed By:ALICE TRONCOSO
--- NOTE | 2024-04-21 13:48 | P.HPCC_ITS ---
History of Present Illness Date of Service: 04/21/24 Chief Complaint: Cardiac arrest 64-year-old lady with underlying history of hypertrophic cardiomyopathy, diabetes mellitus, cerebral aneurysm being admitted after [id number] arrest with unclear down time as arrest was witnessed by family at home, but CPR was not started until EMS arrived and total resuscitation time until return of spontaneous circulation of over 1 hour including approximately 20 minutes in the emergency room. Initial CT head with significant hypoxic damage with loss of aly/white matter differentiation. CT chest with stigmata of pulmonary aspiration. Patient noted to have significant metabolic acidosis requiring pressor support, intubated during the CPR in the emergency room. Admitted to the intensive care unit. Review of Systems 2 Review of Systems: No unobtainable due to endotracheal tube, Unobtainable due to mental condition or Unobtainable due to mental status PMFSH Social History Social History Household Members: Unknown / Unable to assess Housing: Unknown / Unable to assess Patient Tobacco Use Status: Refuse Tobacco use screen Use of substances other than those prescribed or required for medical reasons: Unknown Advance Directives: No Advance Directives Information Provided: No Advance Directives on File: No Do you have a plan to hurt others: Vague Patient : No Meds Allergies Allergy/AdvReac Type Severity Reaction Status Date / Time No Known Allergies Allergy Unverified 04/21/24 10:12 [No Known Allergies*] Active Medications: Current Medications Chlorhexidine Gluconate (Chlorhexidine Gluc Oral Rinse 15 Ml Mouthwash) 15 ml BUCCAL TID [facility]INA Famotidine (Famotidine/Pf 20 Mg/2 Ml Vial) 20 mg IVPUSH DAILY [facility] Norepinephrine Bitartrate (Levophed) 8 mg in 250 mls @ 0 mls/hr IVCONT .Q0M [facility]; Protocol Last Titration: 04/21/24 11:48 Dose: 0.15 mcg/kg/min, 20.25 mls/hr Vasopressin (Vasostrict) 20 unit in 100 mls @ 3 mls/hr IVCONT .Q24H [facility] Last Admin: 04/21/24 09:17 Dose: 0.01 unit/min, 3 mls/hr Propofol (Diprivan) 1,000 mg in 100 mls @ 0 mls/hr IVCONT .Q0M [facility]; Protocol Ampicillin Sodium/Sulbactam (Sodium 3 gm/ Sodium Chloride) 100 mls @ 200 mls/hr IV Q6H [facility] Last Infusion: 04/21/24 13:15 Dose: Infused Sodium Bicarbonate 150 meq/ (Dextrose) 1,000 mls @ 100 mls/hr IV .Q10H [facility] Last Admin: 04/21/24 12:41 Dose: 100 mls/hr Home Medications ?Medication ?Instructions ?Recorded ?Confirmed ?Last Taken ?Type aripiprazole 5 mg tablet 5 mg PO DAILY 04/21/24 Unknown History aspirin 81 mg tablet,delayed 81 mg PO DAILY 04/21/24 Unknown History release atorvastatin 80 mg tablet 80 mg PO DAILY 04/21/24 Unknown History carvedilol 25 mg tablet 25 mg PO BID 04/21/24 Unknown History clonazepam 0.5 mg tablet 0.5 mg PO BID PRN Anxiety 04/21/24 Unknown History diphenhydramine HCl 25 mg capsule 25 mg PO BEDTIME 04/21/24 Unknown History docusate sodium 100 mg capsule 100 mg PO BID 04/21/24 Unknown History losartan 100 mg tablet 100 mg PO DAILY 04/21/24 Unknown History metformin 500 mg tablet,extended 500 mg PO BID 04/21/24 Unknown History release 24 hr nicotine (polacrilex) 4 mg buccal 4 mg PO Q2H PRN Nicotine Cravings 04/21/24 Unknown History lozenge polyethylene glycol 3350 17 17 g PO DAILY 04/21/24 Unknown History gram/dose oral powder venlafaxine 150 mg 150 mg PO DAILY 04/21/24 Unknown History capsule,extended release 24 hr venlafaxine 75 mg capsule,extended 75 mg PO DAILY 04/21/24 Unknown History release 24 hr verapamil 180 mg 24 hr 180 mg PO DAILY 04/21/24 Unknown History capsule,extended release zolpidem 10 mg tablet 10 mg PO BEDTIME PRN Insomnia 04/21/24 Unknown History Physical Exam 2 Vital Signs: Vital Signs: Last Vital Signs Temp 93.9 F L 04/21/24 13:00 Pulse 64 04/21/24 13:00 Resp 26 H 04/21/24 13:00 BP 175/73 H 04/21/24 13:00 Pulse Ox 93 04/21/24 13:00 O2 Del Method Mechanical Ventil ation 04/21/24 13:00 FiO2 40 04/21/24 12:15 BMI result Body Mass Index 27.2 Const: General: alert and other (comatose) Eyes: Pupils: Dilated pupils and Fixed pupils Neck: Neck: Yes no lymphadenopathy, Yes trachea midline and Yes supple Resp: Auscultation: crackles (Bibasilar) Cardio: Rate: regular rate Rhythm: regular rhythm Heart sounds: no gallops, no murmurs and no rubs GI: Palpation (GI): Soft to palpation and Other GI palpation findings present ( Nontender) Auscultation: normal bowel sounds Extrem: General: Yes no pedal edema, No clubbing and No cyanosis Results Labs 04/21/24 10:25 04/21/24 10:25 Labs: Laboratory Results - last 24 hr 04/21/24 04/21/24 04/21/24 08:26 09:04 09:21 MCV TNP MCH TNP MCHC TNP RDW TNP Plt Count TNP MPV TNP Immature Gran % (Auto) Cancelled Neut % (Auto) Cancelled Lymph % (Auto) Cancelled [place] % (Auto) Cancelled Eos % (Auto) Cancelled Baso % (Auto) Cancelled Lymph # (Auto) Cancelled [place] # (Auto) Cancelled Eos # (Auto) Cancelled Baso # (Auto) Cancelled Abs Immat Gran (auto) Cancelled Absolute Neuts (auto) Cancelled Absolute Nucleated RBC TNP Nucleated RBC % (auto) TNP Neutrophils % (Manual) TNP Band Neutrophils % TNP Lymphocytes % (Manual) TNP Monocytes % (Manual) TNP Eosinophils % (Manual) TNP Metamyelocytes % TNP Myelocytes % TNP Abs Neuts (Manual) TNP Lymphocytes # (Manual) TNP Monocytes # (Manual) Metamyelocytes # Myelocytes # TNP Nucleated RBCs TNP Toxic Vacuolation Platelet Estimate TNP Large Platelets TNP Plt Morphology Comment TNP RBC Morphology TNP Spherocytes TNP Ovalocytes TNP Lee Cells TNP Acanthocytes (Spur) TNP Smear Path Review TNP Hold Purple Top SEE NOTE PT 11.8 INR 1.0 Hold Blue Top SEE NOTE O2 Saturation ABG pH at Pt Temp ABG pCO2 at Pt Temp ABG pO2 at Pt Temp ABG HCO3 ABG Base Excess (Actual) VBG pH 6.82 L* VBG pCO2 47 VBG pO2 228 VBG HCO3 8 L VBG O2 Saturation 99.0 VBG Base Excess -25.1 Anion Gap 33 H Estim Creat Clear Calc TNP Estimated GFR 47 Random Glucose 355 H* Lactic Acid Lactic Acid F/U @ 2Hr Calcium 9.4 Magnesium 5.9 H* Total Bilirubin 0.2 AST 36 H ALT 36 H Alkaline Phosphatase 96 Troponin I High Sens 6.1 Total Protein 5.7 L Albumin 3.0 L Hold Yellow Top See Note Influenza Type A (PCR) NEGATIVE Influenza Type B (PCR) NEGATIVE RSV RNA Qual (PCR) NEGATIVE SARS-CoV-2 RNA (RT-PCR) NEGATIVE 04/21/24 04/21/24 04/21/24 10:21 10:25 12:57 MCV 82.5 MCH 24.7 L MCHC 29.9 L RDW 18.7 H Plt Count 172 MPV 10.8 Immature Gran % (Auto) Cancelled Neut % (Auto) Cancelled Lymph % (Auto) Cancelled [place] % (Auto) Cancelled Eos % (Auto) Cancelled Baso % (Auto) Cancelled Lymph # (Auto) Cancelled [place] # (Auto) Cancelled Eos # (Auto) Cancelled Baso # (Auto) Cancelled Abs Immat Gran (auto) Cancelled Absolute Neuts (auto) Cancelled Absolute Nucleated RBC 0.060 H Nucleated RBC % (auto) 0.3 H Neutrophils % (Manual) 73 Band Neutrophils % 8 H Lymphocytes % (Manual) 14 L Monocytes % (Manual) 2 Eosinophils % (Manual) Metamyelocytes % 2 Myelocytes % 1 Abs Neuts (Manual) 14.1 H Lymphocytes # (Manual) 2.4 Monocytes # (Manual) 0.3 Metamyelocytes # 0.3 Myelocytes # 0.2 Nucleated RBCs Toxic Vacuolation PRESENT Platelet Estimate NORMAL Large Platelets PRESENT Plt Morphology Comment NOTED RBC Morphology NOTED Spherocytes Ovalocytes 1+ (5-14) [place] Cells 3+ (>5) Acanthocytes (Spur) 1+ (0-2) Smear Path Review Hold Purple Top PT INR Hold Blue Top O2 Saturation 97.0 ABG pH at Pt Temp 7.01 L* ABG pCO2 at Pt Temp 42 ABG pO2 at Pt Temp 123 H ABG HCO3 11 L ABG Base Excess (Actual) -19.0 VBG pH VBG pCO2 VBG pO2 VBG HCO3 VBG O2 Saturation VBG Base Excess Anion Gap 24 H Estim Creat Clear Calc 54.0 Estimated GFR 53 Random Glucose 165 H Lactic Acid 12.4 H* Lactic Acid F/U @ 2Hr 7.7 H* Calcium 7.1 L D Magnesium 2.9 H Total Bilirubin 0.4 AST 155 H ALT 124 H Alkaline Phosphatase 117 Troponin I High Sens Total Protein 5.1 L Albumin 2.6 L Hold Yellow Top Influenza Type A (PCR) Influenza Type B (PCR) RSV RNA Qual (PCR) SARS-CoV-2 RNA (RT-PCR) Imaging Radiologist's Impressions: Impressions Chest X-Ray 04/21/24 08:30 IMPRESSION: Enteric tube passes beneath diaphragm. Prominent heart, mediastinum and central vasculature on supine imaging. Electronically signed by: Bryant Beckett MD 04/21/2024 09:32 AM EDT Abdomen/Pelvis CT 04/21/24 09:54 IMPRESSION: 1. Heterogeneous hepatic enhancement with periportal and pericholecystic edema and fat stranding. Suspect congestive hepatopathy. Correlate with liver function studies. Consider right upper quadrant ultrasound. 2. Cholelithiasis. Thick-walled gallbladder. No biliary ductal dilation. Cannot exclude acute cholecystitis. 3. Mildly dilated small bowel loops with mesenteric fat stranding. No transition point to suggest obstruction. Favor ileus. 4. Bibasilar lung consolidation and effusions. Suspect aspiration pneumonia. Fleischner guidelines were followed. Electronically signed by: Bryant Beckett MD 04/21/2024 10:40 AM EDT Chest CTA 04/21/24 09:54 IMPRESSION: 1. No pulmonary embolism identified. Exam is degraded by artifact. 2. Extensive bilateral predominantly dependent lung consolidation with thick-walled airways. Aspiration pneumonia is a concern. 3. Increased right heart pressures with reflux of contrast into the IVC and hepatic veins. Consider echocardiography. Fleischner guidelines were followed. Electronically signed by: Bryant Beckett MD 04/21/2024 10:[address] 04/21/24 09:54 IMPRESSION: Apparent loss of aly-white differentiation concerning for hypoxic ischemic injury. Clinical correlation recommended. Further evaluation with MRI or follow-up CT imaging likely warranted. Electronically signed by: Be Suggs MD 04/21/2024 11:11 AM EDT Chest X-Ray 04/21/24 10:50 IMPRESSION: 1. Support apparatus in expected position. 2. Interval insertion of right-sided jugular catheter which terminates within the distal SVC. Electronically signed by: Be Suggs MD 04/21/2024 11:38 AM EDT Assessment and Plan (1) Hypoxic brain injury: Status: Acute (2) Shock: Status: Acute (3) Metabolic acidosis: Status: Acute (4) Cardiac arrest: Status: Acute (5) Acute respiratory failure: Status: Acute Plan Assessment: 64-year-old lady with [id number] arrest with unclear down time and paroxysmally 60 minutes of CPR to returned spontaneous circulation with severe initial hypoxic brain injury Plan: Neuro: Hypoxic brain injury secondary to prolonged CPR. Likely terminal. Cardiac: Cardiogenic shock after cardiac arrest, continue to titrate off pressor support as tolerated. Pulmonary: Acute hypoxic respiratory failure, intubated during cardiac arrest. Continue ventilatory support. Renal: No acute issues. Endo: No acute issues. Underlying diabetes mellitus. GI: No acute issues. ID: Pulmonary aspiration, continue empiric Unasyn. Heme/Onc: No acute issues. Psych: No acute issues. Miscellaneous: Overall poor prognosis, discussion of goals of care are ongoing with the family. Prophylaxis: Pneumatic compression, famotidine Diet: NPO Critical care time spent: 90 minutes
[2024-04-21] MEDS: niCARdipine HCL 25 MG in 0.9 % Sodium Chloride 250 ML 52 MG IVCONT (14:20)
[2024-04-21 14:37] LABS: Glucose, Whole Blood 244 mg/dL (60-115)
[2024-04-21 14:49] LABS: VBG Base Excess -4.6 mmol/L; VBG HCO3 18 mmol/L (22-26); VBG pCO2 28 mmHg; VBG pH 7.41 (7.32-7.43); VBG pO2 83 mmHg
[2024-04-21 14:49] LABS: Venous Blood Gas Refer to POC result
[2024-04-21] MEDS: Insulin Lispro 100 UNIT/ML 3 ML VIAL SUBCUT ×3 (14:49→23:37)
[2024-04-21] MEDS: Chlorhexidine Gluc Oral Rinse 15 ML MOUTHWASH BUCCAL ×2 (14:49→21:00)
[2024-04-21 15:01] LABS: Reflex Lactate? 2 Y
[2024-04-21 15:08] LABS: Anion Gap 23 (12-20); Blood Urea Nitrogen 18 mg/dL (9-16); Calcium 7.1 mg/dL (8.4-10.2); Carbon Dioxide 17 mmol/L (22-29); Chloride 111 mmol/L (96-108); Estimated Glomerular Filt Rate 37; Glucose Random 250 mg/dL (60-115); Potassium 4.9 mmol/L (3.3-5.1); Sodium 146 mmol/L (135-145)
--- NOTE | 2024-04-21 15:25 | PC.NURSE ---
Assumed care of patient 12:00. Pt arrived from ED via stretcher with 2 RNs Vent settings ACVC 26/330/5.0/40%. Pt RR 26. VSS on tele monitor Pt povided new linens, full bed bath 12:19 Bicarb 100 mEq IVP given 12:41 Bicarb gtt 150mEq/1000ml started @100 ml/hr 12:57 lactic 2 hour check 7.7, MD notified 13:30 transthoracic echo started at bedside MD met with family (pt daughter, pt sister)with manager applied to update on patient health status. Code status DNR Vasopressor requirements decreased. Levophed off at 13:30. Vasopressin off at 14:00 for elevated blood pressures. See MAR New order for Nicardipine gtt. 14:20 Nicardipine gtt started at 5 mcg/hr for SBPs in 200s
[2024-04-21 15:41] LABS: ~Lactic Acid-LAB USE ONLY 6.6 mmol/L (0.5-2.0)
--- NOTE | 2024-04-21 17:34 | PHA.MEDREC ---
Addendum entered by Michele Garcia 04/21/24 18:10: Reviewed Original Note: Pharmacy Consult ? Medication Reconciliation Pharmacy has completed the medication reconciliation. Family does not know medications. Pt intubated. Called [facility] x3 but no response. Confirmed based off claim history.
[2024-04-21 20:27] LABS: Albumin Level 2.9 g/dL (3.5-5.0); Anion Gap 17 (12-20); Blood Urea Nitrogen 22 mg/dL (9-16); Calcium 7.1 mg/dL (8.4-10.2); Carbon Dioxide 21 mmol/L (22-29); Chloride 110 mmol/L (96-108); Creatinine Clr Calc Pharmacy 27.2; Estimated Glomerular Filt Rate 24; Glucose Random 343 mg/dL (60-115); Magnesium 2.4 mg/dL (1.6-2.6); Phosphorus 1.3 mg/dL (2.7-4.5); Potassium 2.5 mmol/L (3.3-5.1); Sodium 145 mmol/L (135-145)
[2024-04-21] MEDS: Potassium Chloride/H20 40 MEQ/100 ML PIGGYBACK 50 MEQ IV (20:47)
[2024-04-21] MEDS: Calcium Gluconate/NaCl,Iso-Osm 2 GM/100 ML PLAST..BAG IV (20:51)
[2024-04-21 20:54] LABS: Glucose, Whole Blood 312 mg/dL (60-115)
[2024-04-21] MEDS: Potassium Phosphate/NS 15 MMOL/250 ML PLAST..BAG 62.5 MMOL IV (21:01)
[2024-04-21] MEDS: niCARdipine HCL 25 MG in 0.9 % Sodium Chloride 250 ML 26 MG IVCONT (21:06)
[2024-04-21 23:27] LABS: Glucose, Whole Blood 293 mg/dL (60-115)
[2024-04-21] MEDS: 0.9 % Sodium Chloride Flush 3 ML SYRINGE IVFLUSH (23:37)
[2024-04-22] VITALS (40 sets, daily range): BP systolic 132–164; BP diastolic 62–77; PULSE 84–107; RESP 15–22; TEMP 35–37.9; O2SAT 90–96; BMI 27.1
[2024-04-22] MEDS: Potassium Phosphate/NS 15 MMOL/250 ML PLAST..BAG 62.5 MMOL IV (01:06)
[2024-04-22] MEDS: Ampicillin Sodium/Sulbactam Na 3 GM in 0.9 % Sodium Chloride 100 ML IV ×4 (04:21→22:27)
[2024-04-22 05:26] LABS: VBG Base Excess 5.3 mmol/L; VBG HCO3 28 mmol/L (22-26); VBG pCO2 36 mmHg; VBG pH 7.49 (7.32-7.43); VBG pO2 63 mmHg
[2024-04-22 05:42] LABS: Basophils Absolute Auto 0.1 X10*3/uL (0.0-0.2); Basophils Percent Auto 0.3 % (0-2); Eosinophils Absolute Auto 0.1 X10*3/uL (0.0-0.4); Eosinophils Percent Auto 0.3 % (0-4); Hematocrit 36.1 % (37.0-47.0); Hemoglobin 11.8 g/dl (12.0-16.0); Imm Gran Abs Auto 0.33 X10*3/uL (0.00-0.03); Imm Gran Pct Auto 1.1 % (0.0-0.4); Lymphocytes Absolute Auto 0.8 X10*3/uL (1.2-4.9); Lymphocytes Percent Auto 2.7 % (20-40); MANUAL DIFF FLAG SCAN; Mean Corpuscular HGB Conc 32.7 g/dl (31.0-35.0); Mean Corpuscular Hemoglobin 24.5 pg (27.0-33.0); Mean Corpuscular Volume 74.9 fL (80.0-98.0); Monocytes Absolute Auto 0.8 X10*3/uL (0.1-1.2); Monocytes Percent Auto 2.6 % (2-11); NRBC Pct Auto 0.1 /100WBC (0.0-0.2); Neutrophils Absolute Auto 27.4 x10*3/uL (2.0-8.3); Platelet Count 176 X10*3/uL (160-400); Red Blood Count 4.82 X10*6/uL (4.20-5.50); Red Cell Distribution Width 18.8 % (11.0-16.0); SCAN SMEAR FLAG 1; White Blood Count 29.5 X10*3/uL (4.8-10.8)
[2024-04-22 06:07] LABS: Alanine Aminotransferase 208 U/L (0-31); Albumin Level 2.8 g/dL (3.5-5.0); Alkaline Phosphatase 104 U/L (39-117); Anion Gap 17 (12-20); Aspartate Amino Transferase 261 U/L (5-31); Bilirubin Total 0.4 mg/dL (0.0-1.0); Blood Urea Nitrogen 28 mg/dL (9-16); Calcium 7.5 mg/dL (8.4-10.2); Carbon Dioxide 26 mmol/L (22-29); Chloride 111 mmol/L (96-108); Creatinine Clr Calc Pharmacy 20.9; Estimated Glomerular Filt Rate 18; Glucose Random 194 mg/dL (60-115); Magnesium 2.2 mg/dL (1.6-2.6); Phosphorus 3.1 mg/dL (2.7-4.5); Potassium 3.2 mmol/L (3.3-5.1); Sodium 151 mmol/L (135-145); Total Protein 5.6 g/dL (6.5-8.0)
[2024-04-22 06:19] LABS: SLIDE REVIEW VERIFIED
[2024-04-22] MEDS: Sodium Bicarbonate 8.4% 150 MEQ in Dextrose 5 % 850 ML 100 MEQ IV (07:20)
[2024-04-22] MEDS: niCARdipine HCL 25 MG in 0.9 % Sodium Chloride 250 ML 26 MG IVCONT ×2 (07:20→16:47)
[2024-04-22] MEDS: 0.9 % Sodium Chloride Flush 3 ML SYRINGE IVFLUSH ×3 (07:21→19:31)
[2024-04-22] MEDS: Famotidine/PF 20 MG/2 ML VIAL IVPUSH (08:21)
[2024-04-22] MEDS: Chlorhexidine Gluc Oral Rinse 15 ML MOUTHWASH BUCCAL ×3 (08:21→19:31)
[2024-04-22] MEDS: Albumin Human 25 % 100 ML IV ×3 (08:21→19:25)
[2024-04-22] MEDS: Potassium Chloride/H20 40 MEQ/100 ML PIGGYBACK 50 MEQ IV ×2 (08:22→20:57)
[2024-04-22 08:31] LABS: Glucose, Whole Blood 170 mg/dL (60-115)
[2024-04-22] MEDS: Insulin Lispro 100 UNIT/ML 3 ML VIAL SUBCUT ×3 (08:49→18:01)
[2024-04-22] MEDS: Dextrose 5 % 1,000 ML 100 ML IVCONT ×2 (10:25→20:23)
--- NOTE | 2024-04-22 12:26 | P.PNCC_ITS ---
Subjective Subjective Date of Service: 04/22/24 Interval History: 64-year-old lady with underlying history of hypertrophic cardiomyopathy, diabetes mellitus, cerebral aneurysm being admitted after [id number] arrest with unclear down time as arrest was witnessed by family at home, but CPR was not started until EMS arrived and total resuscitation time until return of spontaneous circulation of over 1 hour including approximately 20 minutes in the emergency room. Initial CT head with significant hypoxic damage with loss of aly/white matter differentiation. CT chest with stigmata of pulmonary aspiration. Patient noted to have significant metabolic acidosis requiring pressor support, intubated during the CPR in the emergency room. Admitted to the intensive care unit. No events overnight. Required Cardene drip for hypertension. Critical Care Time (minutes): 60 Physical Exam 2 Vital Signs: Vital Signs: Last Vital Signs Temp 98.8 F 04/22/24 12:00 Pulse 102 H 04/22/24 12:00 Resp 22 H 04/22/24 12:00 BP 151/66 H 04/22/24 12:00 Pulse Ox 93 04/22/24 12:00 O2 Del Method Mechanical Ventil ation 04/22/24 12:00 FiO2 40 04/22/24 12:00 BMI result Body Mass Index 27.1 Const: General: other (comatose) Eyes: Sclerae: sclerae normal Pupils: Dilated pupils and Fixed pupils Neck: Neck: Yes no lymphadenopathy, Yes trachea midline and Yes supple Resp: Effort & Inspection: normal respiratory effort and no respiratory distress Auscultation: clear to auscultation bilaterally Cardio: Rate: tachycardic Rhythm: regular rhythm Heart sounds: no gallops, no murmurs and no rubs GI: Palpation (GI): Soft to palpation and Other GI palpation findings present ( Nontender) Auscultation: normal bowel sounds Extrem: General: Yes no pedal edema, No clubbing and No cyanosis Objective Data Labs 04/22/24 05:29 04/22/24 05:29 Labs: Laboratory Results - last 24 hr 04/21/24 04/21/24 04/21/24 12:57 14:28 14:31 WBC RBC Hgb Hct MCV MCH MCHC RDW Plt Count MPV Immature Gran % (Auto) Neut % (Auto) Lymph % (Auto) [place] % (Auto) Eos % (Auto) Baso % (Auto) Lymph # (Auto) [place] # (Auto) Eos # (Auto) Baso # (Auto) Abs Immat Gran (auto) Absolute Neuts (auto) Absolute Nucleated RBC Nucleated RBC % (auto) Smear Tech's Comments VBG pH VBG pCO2 VBG pO2 VBG HCO3 VBG O2 Saturation VBG Base Excess Sodium 146 H Potassium 4.9 D Chloride 111 H Carbon Dioxide 17 L Anion Gap 23 H BUN 18 H Creatinine 1.42 H Estim Creat Clear Calc 40.0 Estimated GFR 37 POC Glucose 244 H Random Glucose 250 H Lactic Acid F/U @ 2Hr 7.7 H* Lactic Acid F/U @ 4Hr Calcium 7.1 L Phosphorus Magnesium Total Bilirubin AST ALT Alkaline Phosphatase Total Protein Albumin 04/21/24 04/21/24 04/21/24 14:45 15:16 19:53 WBC RBC Hgb Hct MCV MCH MCHC RDW Plt Count MPV Immature Gran % (Auto) Neut % (Auto) Lymph % (Auto) [place] % (Auto) Eos % (Auto) Baso % (Auto) Lymph # (Auto) [place] # (Auto) Eos # (Auto) Baso # (Auto) Abs Immat Gran (auto) Absolute Neuts (auto) Absolute Nucleated RBC Nucleated RBC % (auto) Smear Tech's Comments VBG pH 7.41 VBG pCO2 28 VBG pO2 83 VBG HCO3 18 L VBG O2 Saturation 96.0 VBG Base Excess -4.6 Sodium 145 Potassium 2.5 L* D Chloride 110 H Carbon Dioxide 21 L Anion Gap 17 BUN 22 H Creatinine 2.08 H Estim Creat Clear Calc 27.2 Estimated GFR 24 POC Glucose Random Glucose 343 H Lactic Acid F/U @ 2Hr Lactic Acid F/U @ 4Hr 6.6 H* Calcium 7.1 L Phosphorus 1.3 L Magnesium 2.4 Total Bilirubin AST ALT Alkaline Phosphatase Total Protein Albumin 2.9 L 04/21/24 04/21/24 04/22/24 20:51 23:24 05:15 WBC RBC Hgb Hct MCV MCH MCHC RDW Plt Count MPV Immature Gran % (Auto) Neut % (Auto) Lymph % (Auto) [place] % (Auto) Eos % (Auto) Baso % (Auto) Lymph # (Auto) [place] # (Auto) Eos # (Auto) Baso # (Auto) Abs Immat Gran (auto) Absolute Neuts (auto) Absolute Nucleated RBC Nucleated RBC % (auto) Smear Tech's Comments VBG pH 7.49 H VBG pCO2 36 VBG pO2 63 VBG HCO3 28 H VBG O2 Saturation 88.0 VBG Base Excess 5.3 Sodium Potassium Chloride Carbon Dioxide Anion Gap BUN Creatinine Estim Creat Clear Calc Estimated GFR POC Glucose 312 H 293 H Random Glucose Lactic Acid F/U @ 2Hr Lactic Acid F/U @ 4Hr Calcium Phosphorus Magnesium Total Bilirubin AST ALT Alkaline Phosphatase Total Protein Albumin 04/22/24 04/22/24 05:29 08:24 WBC 29.5 H RBC 4.82 Hgb 11.8 L Hct 36.1 L MCV 74.9 L D MCH 24.5 L MCHC 32.7 RDW 18.8 H Plt Count 176 MPV Not Reportable Immature Gran % (Auto) 1.1 H Neut % (Auto) 93.0 H Lymph % (Auto) 2.7 L [place] % (Auto) 2.6 Eos % (Auto) 0.3 Baso % (Auto) 0.3 Lymph # (Auto) 0.8 L [place] # (Auto) 0.8 Eos # (Auto) 0.1 Baso # (Auto) 0.1 Abs Immat Gran (auto) 0.33 H Absolute Neuts (auto) 27.4 H Absolute Nucleated RBC 0.020 H Nucleated RBC % (auto) 0.1 Smear Tech's Comments VERIFIED VBG pH VBG pCO2 VBG pO2 VBG HCO3 VBG O2 Saturation VBG Base Excess Sodium 151 H Potassium 3.2 L D Chloride 111 H Carbon Dioxide 26 Anion Gap 17 BUN 28 H Creatinine 2.71 H Estim Creat Clear Calc 20.9 Estimated GFR 18 POC Glucose 170 H Random Glucose 194 H Lactic Acid F/U @ 2Hr Lactic Acid F/U @ 4Hr Calcium 7.5 L Phosphorus 3.1 Magnesium 2.2 Total Bilirubin 0.4 AST 261 H ALT 208 H Alkaline Phosphatase 104 Total Protein 5.6 L Albumin 2.8 L Progress Note: A&P Assessment and plan (1) Hypoxic brain injury: Status: Acute (2) Cardiac arrest: Status: Acute Plan Assessment: 64-year-old lady with fah-ss-qvvdnypa arrest with unclear down time and paroxysmally 60 minutes of CPR to returned spontaneous circulation with severe initial hypoxic brain injury Plan: Neuro: Hypoxic brain injury secondary to prolonged CPR. GCS 3. Likely terminal. Cardiac: Hypertensive urgency requiring Cardene drip. Pulmonary: Acute hypoxic respiratory failure, intubated during cardiac arrest. Continue ventilatory support. Renal: Acute renal failure. Hypernatremia, start on D5W. Continue to monitor renal indices and urine output. Endo: No acute issues. Underlying diabetes mellitus. GI: No acute issues. ID: Pulmonary aspiration, continue empiric Unasyn. Heme/Onc: No acute issues. Psych: No acute issues. Miscellaneous: Overall poor prognosis, discussion of goals of care are ongoing with the family. Prophylaxis: Pneumatic compression, famotidine Diet: NPO Critical care time spent: 60 minutes Quality Stroke Does the patient have a stroke diagnosis?: No VTE Prior VTE?: No VTE Risk Level:: Medical - moderate - high VTE Device Contraindication: N/A - Device Ordered VTE Drug Contraindication: Treatment Not Indicated
[2024-04-22 12:55] LABS: Glucose, Whole Blood 208 mg/dL (60-115)
[2024-04-22 13:52] LABS: Venous Blood Gas Refer to POC result
--- NOTE | 2024-04-22 14:09 | MHC.CM.PN ---
PT IN ICU ON VENTILATORY SUPPORT S/P CARDIAC ARREST. GOC WITH FAMILY ONGOING. CM WILL FOLLOW FOR UNFOLDING PLAN.
[2024-04-22 17:52] LABS: Glucose, Whole Blood 229 mg/dL (60-115)
[2024-04-22 20:29] LABS: Anion Gap 19 (12-20); Blood Urea Nitrogen 30 mg/dL (9-16); Calcium 7.2 mg/dL (8.4-10.2); Carbon Dioxide 27 mmol/L (22-29); Chloride 108 mmol/L (96-108); Creatinine Clr Calc Pharmacy 15.8; Estimated Glomerular Filt Rate 13; Glucose Random 277 mg/dL (60-115); Magnesium 2.1 mg/dL (1.6-2.6); Phosphorus 4.2 mg/dL (2.7-4.5); Potassium 3.6 mmol/L (3.3-5.1); Sodium 150 mmol/L (135-145)
[2024-04-22] MEDS: Calcium Gluconate/NaCl,Iso-Osm 2 GM/100 ML PLAST..BAG IV (20:57)
[2024-04-22] MEDS: Albuterol Sulfate (0.042%) 1.25 MG/3 ML VIAL.NEB INHALE (21:08)
[2024-04-22 21:43] LABS: VBG Base Excess 5.2 mmol/L; VBG HCO3 30 mmol/L (22-26); VBG pCO2 46 mmHg; VBG pH 7.41 (7.32-7.43); VBG pO2 73 mmHg
[2024-04-22 21:44] LABS: Venous Blood Gas Refer to POC result
[2024-04-23] VITALS (48 sets, daily range): BP systolic 109–169; BP diastolic 46–96; PULSE 72–104; RESP 17–25; TEMP 34.7–39; O2SAT 90–98; BMI 27.0; BMI 31.7
[2024-04-23 00:03] LABS: Glucose, Whole Blood 264 mg/dL (60-115)
[2024-04-23] MEDS: Insulin Lispro 100 UNIT/ML 3 ML VIAL SUBCUT ×4 (00:07→17:28)
[2024-04-23] MEDS: Albuterol Sulfate (0.042%) 1.25 MG/3 ML VIAL.NEB INHALE (00:45)
[2024-04-23] MEDS: Albumin Human 25 % 100 ML IV (00:59)
[2024-04-23] MEDS: Albuterol Sulfate (0.083%) 2.5 MG/3 ML VIAL.NEB 10 MG INHALE (01:45)
[2024-04-23] MEDS: Magnesium Sulfate/D5W 1 GM/100 ML PIGGYBACK IV (01:47)
[2024-04-23] MEDS: Acetaminophen Oral Liquid 650 MG/20.3 ML SOLUTION PO (02:13)
[2024-04-23] MEDS: niCARdipine HCL 25 MG in 0.9 % Sodium Chloride 250 ML 26 MG IVCONT (02:36)
[2024-04-23] MEDS: Ampicillin Sodium/Sulbactam Na 3 GM in 0.9 % Sodium Chloride 100 ML IV (04:22)
[2024-04-23 05:38] LABS: VBG Base Excess 2.4 mmol/L; VBG HCO3 28 mmol/L (22-26); VBG pCO2 49 mmHg; VBG pH 7.36 (7.32-7.43); VBG pO2 76 mmHg
[2024-04-23 05:48] LABS: Basophils Percent Auto 0.1 % (0-2); Hematocrit 29.9 % (37.0-47.0); Hemoglobin 9.4 g/dl (12.0-16.0); Imm Gran Abs Auto 0.47 X10*3/uL (0.00-0.03); Imm Gran Pct Auto 1.6 % (0.0-0.4); Lymphocytes Percent Auto 3.4 % (20-40); MANUAL DIFF FLAG SCAN; Mean Corpuscular HGB Conc 31.4 g/dl (31.0-35.0); Mean Corpuscular Hemoglobin 24.5 pg (27.0-33.0); Mean Corpuscular Volume 78.1 fL (80.0-98.0); Monocytes Absolute Auto 1.8 X10*3/uL (0.1-1.2); Monocytes Percent Auto 6.2 % (2-11); NRBC Pct Auto 0.1 /100WBC (0.0-0.2); Neutrophils Absolute Auto 25.4 x10*3/uL (2.0-8.3); Neutrophils Percent Auto 88.7 % (45-73); Platelet Count 142 X10*3/uL (160-400); Red Blood Count 3.83 X10*6/uL (4.20-5.50); Red Cell Distribution Width 19.6 % (11.0-16.0); SCAN SMEAR FLAG 1; White Blood Count 28.7 X10*3/uL (4.8-10.8)
[2024-04-23 05:59] LABS: Venous Blood Gas Refer to POC result
[2024-04-23 06:05] LABS: Glucose, Whole Blood 278 mg/dL (60-115)
[2024-04-23 06:05] LABS: Alanine Aminotransferase 133 U/L (0-31); Albumin Level 4.1 g/dL (3.5-5.0); Alkaline Phosphatase 78 U/L (39-117); Anion Gap 16 (12-20); Aspartate Amino Transferase 94 U/L (5-31); Bilirubin Total 0.4 mg/dL (0.0-1.0); Blood Urea Nitrogen 29 mg/dL (9-16); Calcium 7.7 mg/dL (8.4-10.2); Carbon Dioxide 27 mmol/L (22-29); Chloride 111 mmol/L (96-108); Glucose Random 288 mg/dL (60-115); Magnesium 2.4 mg/dL (1.6-2.6); Potassium 4.1 mmol/L (3.3-5.1); Sodium 150 mmol/L (135-145); Total Protein 6.2 g/dL (6.5-8.0)
[2024-04-23 06:07] LABS: Creatinine Clr Calc Pharmacy 13.2; Estimated Glomerular Filt Rate 11
[2024-04-23 06:18] LABS: SLIDE REVIEW VERIFIED
[2024-04-23] MEDS: Dextrose 5 % 1,000 ML 100 ML IVCONT ×2 (06:29→16:09)
[2024-04-23] MEDS: Albuterol/Iprat 2.5/0.5MG 3 ML AMPUL.NEB INHALE ×4 (07:38→19:58)
[2024-04-23] MEDS: Calcium Gluconate/NaCl,Iso-Osm 2 GM/100 ML PLAST..BAG IV (07:55)
[2024-04-23] MEDS: Chlorhexidine Gluc Oral Rinse 15 ML MOUTHWASH BUCCAL ×3 (07:56→20:34)
[2024-04-23] MEDS: 0.9 % Sodium Chloride Flush 3 ML SYRINGE IVFLUSH ×2 (07:56→15:35)
[2024-04-23] MEDS: Famotidine/PF 20 MG/2 ML VIAL IVPUSH (07:56)
--- NOTE | 2024-04-23 09:59 | MHC.CLN ---
PT IS INTUBATED AND SEDATED CURRENTLY NPO IF TF NEEDED; RECOMMEND GLUCERNA AT MAX GOAL RATE 55ML/HR TO PROVIDE 1320KCALS, 55G PROTEIN, 1126ML FREE WATER FROM FORMULA MONITOR TOLERANCE AND LYTES MONITOR FOR DIET ADVANCEMENT SEE ALSO FULL CLINICAL NUTRITION ASSESSMENT
[2024-04-23 10:35] LABS: Anion Gap 15 (12-20); Blood Urea Nitrogen 30 mg/dL (9-16); Calcium 8.3 mg/dL (8.4-10.2); Carbon Dioxide 27 mmol/L (22-29); Chloride 111 mmol/L (96-108); Creatinine Clr Calc Pharmacy 11.4; Estimated Glomerular Filt Rate 10; Glucose Random 246 mg/dL (60-115); Potassium 3.8 mmol/L (3.3-5.1); Sodium 149 mmol/L (135-145)
[2024-04-23 11:32] LABS: Glucose, Whole Blood 234 mg/dL (60-115)
--- NOTE | 2024-04-23 12:11 | PM.CCPN ---
Subjective Subjective Date of Service: 04/23/24 Critical Care Time (minutes): 40 Comment: Continues to be on ventilator support Absent brainstem reflexes, no purposeful movements Physical Exam Vital Signs: Vital Signs: Last Vital Signs Temp 97.5 F 04/23/24 12:00 Pulse 80 04/23/24 12:00 Resp 20 04/23/24 12:00 BP 137/56 L 04/23/24 12:00 Pulse Ox 95 04/23/24 12:00 O2 Del Method Mechanical Ventil ation 04/23/24 12:00 O2 Flow Rate 40 04/22/24 18:00 FiO2 50 04/23/24 12:00 BMI result Body Mass Index 31.7 General: ill appearing and tired appearing Nutritional Appearance: well nourished and overweight Eyes: appearance normal, both eyes and all related structures; Alignment and Position: alignment normal and position normal Neck: No lymphadenopathy, no thyromegaly Resp: bilateral air entry equal, occasional added sounds present Cardio: Regular rate, regular rhythm; Heart sounds: S1 normal heart sound present and S2 normal heart sound present GI: soft, nontender, no guarding, no hepatosplenomegaly : bladder normal to inspection, bladder normal to palpation, no renal angle tenderness Skin: no rashes or lesions noted and elasticity normal Neuro: No spontaneous movements, absent brainstem reflexes, pupils dilated and fixed Objective Data Labs 04/23/24 05:18 04/23/24 09:25 Labs: Laboratory Results - last 24 hr 04/22/24 04/22/24 04/22/24 12:34 17:42 19:55 WBC RBC Hgb Hct MCV MCH MCHC RDW Plt Count MPV Immature Gran % (Auto) Neut % (Auto) Lymph % (Auto) [place] % (Auto) Eos % (Auto) Baso % (Auto) Lymph # (Auto) [place] # (Auto) Eos # (Auto) Baso # (Auto) Abs Immat Gran (auto) Absolute Neuts (auto) Absolute Nucleated RBC Nucleated RBC % (auto) Smear Tech's Comments VBG pH VBG pCO2 VBG pO2 VBG HCO3 VBG O2 Saturation VBG Base Excess Sodium 150 H Potassium 3.6 Chloride 108 Carbon Dioxide 27 Anion Gap 19 BUN 30 H Creatinine 3.57 H Estim Creat Clear Calc 15.8 Estimated GFR 13 POC Glucose 208 H 229 H Random Glucose 277 H Calcium 7.2 L Phosphorus 4.2 Magnesium 2.1 Total Bilirubin AST ALT Alkaline Phosphatase Total Protein Albumin 4.0 04/22/24 04/22/24 04/23/24 21:39 23:58 05:18 WBC 28.7 H RBC 3.83 L D Hgb 9.4 L D Hct 29.9 L MCV 78.1 L MCH 24.5 L MCHC 31.4 RDW 19.6 H Plt Count 142 L MPV Not Reportable Immature Gran % (Auto) 1.6 H Neut % (Auto) 88.7 H Lymph % (Auto) 3.4 L [place] % (Auto) 6.2 Eos % (Auto) 0.0 Baso % (Auto) 0.1 Lymph # (Auto) 1.0 L [place] # (Auto) 1.8 H Eos # (Auto) 0.0 Baso # (Auto) 0.0 Abs Immat Gran (auto) 0.47 H Absolute Neuts (auto) 25.4 H Absolute Nucleated RBC 0.020 H Nucleated RBC % (auto) 0.1 Smear Tech's Comments VERIFIED VBG pH 7.41 VBG pCO2 46 VBG pO2 73 VBG HCO3 30 H VBG O2 Saturation 94.0 VBG Base Excess 5.2 Sodium 150 H Potassium 4.1 Chloride 111 H Carbon Dioxide 27 Anion Gap 16 BUN 29 H Creatinine 4.27 H* Estim Creat Clear Calc 13.2 Estimated GFR 11 POC Glucose 264 H Random Glucose 288 H Calcium 7.7 L D Phosphorus 5.0 H Magnesium 2.4 Total Bilirubin 0.4 AST 94 H ALT 133 H Alkaline Phosphatase 78 Total Protein 6.2 L Albumin 4.1 04/23/24 04/23/24 04/23/24 05:28 05:58 09:25 WBC RBC Hgb Hct MCV MCH MCHC RDW Plt Count MPV Immature Gran % (Auto) Neut % (Auto) Lymph % (Auto) [place] % (Auto) Eos % (Auto) Baso % (Auto) Lymph # (Auto) [place] # (Auto) Eos # (Auto) Baso # (Auto) Abs Immat Gran (auto) Absolute Neuts (auto) Absolute Nucleated RBC Nucleated RBC % (auto) Smear Tech's Comments VBG pH 7.36 VBG pCO2 49 VBG pO2 76 VBG HCO3 28 H VBG O2 Saturation 93.0 VBG Base Excess 2.4 Sodium 149 H Potassium 3.8 Chloride 111 H Carbon Dioxide 27 Anion Gap 15 BUN 30 H Creatinine 4.37 H* Estim Creat Clear Calc 11.4 Estimated GFR 10 POC Glucose 278 H Random Glucose 246 H Calcium 8.3 L D Phosphorus Magnesium Total Bilirubin AST ALT Alkaline Phosphatase Total Protein Albumin 04/23/24 11:29 WBC RBC Hgb Hct MCV MCH MCHC RDW Plt Count MPV Immature Gran % (Auto) Neut % (Auto) Lymph % (Auto) [place] % (Auto) Eos % (Auto) Baso % (Auto) Lymph # (Auto) [place] # (Auto) Eos # (Auto) Baso # (Auto) Abs Immat Gran (auto) Absolute Neuts (auto) Absolute Nucleated RBC Nucleated RBC % (auto) Smear Tech's Comments VBG pH VBG pCO2 VBG pO2 VBG HCO3 VBG O2 Saturation VBG Base Excess Sodium Potassium Chloride Carbon Dioxide Anion Gap BUN Creatinine Estim Creat Clear Calc Estimated GFR POC Glucose 234 H Random Glucose Calcium Phosphorus Magnesium Total Bilirubin AST ALT Alkaline Phosphatase Total Protein Albumin Microbiology Microbiology Results: Microbiology 04/21/24 10:59 Blood - Venous Blood Culture - Preliminary No growth after 24 hours. 04/21/24 10:24 Blood - Venous Blood Culture - Preliminary No growth after 24 hours. Progress Note: A&P Assessment and plan (1) Metabolic acidosis: Status: Acute (2) Shock: Status: Acute (3) Hypoxic brain injury: Status: Acute (4) Cholelithiasis: Status: Acute (5) Cardiac arrest: Status: Acute (6) Pneumonia: Status: Acute (7) Acute respiratory failure: Status: Acute Plan Neuro: Acute encephalopathy possibly due to hypoxic ischemic brain injury as seen by CT scan No brainstem reflexes possibly suggesting the patient is brain . Her last sodium on BMP was 150, we will repeat the sodium if the sodium is under tolerable limits we will do a brain evaluation. Close neurological status monitoring in the ICU every hour Cardiac: Hypertensive urgency: Continue Cardene drip Cardiac arrest: Unclear etiology, out of hospital cardiac arrest Over 1 hour of total downtime with initial period of no resuscitation until EMS arrived. TTE suggestive of normal LV systolic function, moderate pulmonary hypertension, moderate AR Respiratory: Acute hypoxemic respiratory failure due to aspiration pneumonia Currently on ventilator support On PRVC mode FiO2[50%], PEEP 5, TV 400, RR 22 Peak pressures and plateau pressures are under the curve Ventilator management bundle with head end elevation, aspiration precaution, chlorhexidine mouthwash, daily awakening trials, daily spontaneous breathing trials GI: on tube feeds Renal: Acute kidney injury possibly secondary to ATN No indication for renal replacement therapy Baseline creatinine normal, creatinine today is We will closely monitor I's and O's Avoid nephrotoxic medications Heme: Chronic anemia, closely monitor H&H, transfuse for hemoglobin less than 7 grams/deciliter Endocrine: Blood sugars under control Sliding scale insulin as needed Infectious disease: Pancultures negative so far On ampicillin sulbactam for antibiotic coverage Musculoskeletal: Decubitus ulcer prevention protocol Prophylaxis: Heparin, pantoprazole Patient has multiple organ failures including hypoxic ischemic brain injury, acute hypoxemic respiratory failure, acute renal failure. Total critical care time spent is about 45 minutes on chart review, review of labs, review of all the images including the CT of the head, ventilator management, close neurological status monitoring, close hemodynamic status monitoring Quality Stroke Does the patient have a stroke diagnosis?: No VTE Prior VTE?: No VTE Risk Level:: Medical - moderate - high VTE Device Contraindication: N/A - Device Ordered VTE Drug Contraindication: Treatment Not Indicated
--- NOTE | 2024-04-23 12:33 | P.PNCC_ITS ---
Subjective Subjective Date of Service: 04/23/24 Critical Care Time (minutes): 35 Comment: No new events overnight Physical Exam 2 Vital Signs: Vital Signs: Last Vital Signs Temp 97.5 F 04/23/24 12:00 Pulse 80 04/23/24 12:00 Resp 20 04/23/24 12:00 BP 137/56 L 04/23/24 12:00 Pulse Ox 95 04/23/24 12:00 O2 Del Method Mechanical Ventil ation 04/23/24 12:00 O2 Flow Rate 40 04/22/24 18:00 FiO2 50 04/23/24 12:00 BMI result Body Mass Index 31.7 Objective Data Labs 04/23/24 05:18 04/23/24 09:25 Labs: Laboratory Results - last 24 hr 04/22/24 04/22/24 04/22/24 12:34 17:42 19:55 WBC RBC Hgb Hct MCV MCH MCHC RDW Plt Count MPV Immature Gran % (Auto) Neut % (Auto) Lymph % (Auto) [place] % (Auto) Eos % (Auto) Baso % (Auto) Lymph # (Auto) [place] # (Auto) Eos # (Auto) Baso # (Auto) Abs Immat Gran (auto) Absolute Neuts (auto) Absolute Nucleated RBC Nucleated RBC % (auto) Smear Tech's Comments VBG pH VBG pCO2 VBG pO2 VBG HCO3 VBG O2 Saturation VBG Base Excess Sodium 150 H Potassium 3.6 Chloride 108 Carbon Dioxide 27 Anion Gap 19 BUN 30 H Creatinine 3.57 H Estim Creat Clear Calc 15.8 Estimated GFR 13 POC Glucose 208 H 229 H Random Glucose 277 H Calcium 7.2 L Phosphorus 4.2 Magnesium 2.1 Total Bilirubin AST ALT Alkaline Phosphatase Total Protein Albumin 4.0 04/22/24 04/22/24 04/23/24 21:39 23:58 05:18 WBC 28.7 H RBC 3.83 L D Hgb 9.4 L D Hct 29.9 L MCV 78.1 L MCH 24.5 L MCHC 31.4 RDW 19.6 H Plt Count 142 L MPV Not Reportable Immature Gran % (Auto) 1.6 H Neut % (Auto) 88.7 H Lymph % (Auto) 3.4 L [place] % (Auto) 6.2 Eos % (Auto) 0.0 Baso % (Auto) 0.1 Lymph # (Auto) 1.0 L [place] # (Auto) 1.8 H Eos # (Auto) 0.0 Baso # (Auto) 0.0 Abs Immat Gran (auto) 0.47 H Absolute Neuts (auto) 25.4 H Absolute Nucleated RBC 0.020 H Nucleated RBC % (auto) 0.1 Smear Tech's Comments VERIFIED VBG pH 7.41 VBG pCO2 46 VBG pO2 73 VBG HCO3 30 H VBG O2 Saturation 94.0 VBG Base Excess 5.2 Sodium 150 H Potassium 4.1 Chloride 111 H Carbon Dioxide 27 Anion Gap 16 BUN 29 H Creatinine 4.27 H* Estim Creat Clear Calc 13.2 Estimated GFR 11 POC Glucose 264 H Random Glucose 288 H Calcium 7.7 L D Phosphorus 5.0 H Magnesium 2.4 Total Bilirubin 0.4 AST 94 H ALT 133 H Alkaline Phosphatase 78 Total Protein 6.2 L Albumin 4.1 04/23/24 04/23/24 04/23/24 05:28 05:58 09:25 WBC RBC Hgb Hct MCV MCH MCHC RDW Plt Count MPV Immature Gran % (Auto) Neut % (Auto) Lymph % (Auto) [place] % (Auto) Eos % (Auto) Baso % (Auto) Lymph # (Auto) [place] # (Auto) Eos # (Auto) Baso # (Auto) Abs Immat Gran (auto) Absolute Neuts (auto) Absolute Nucleated RBC Nucleated RBC % (auto) Smear Tech's Comments VBG pH 7.36 VBG pCO2 49 VBG pO2 76 VBG HCO3 28 H VBG O2 Saturation 93.0 VBG Base Excess 2.4 Sodium 149 H Potassium 3.8 Chloride 111 H Carbon Dioxide 27 Anion Gap 15 BUN 30 H Creatinine 4.37 H* Estim Creat Clear Calc 11.4 Estimated GFR 10 POC Glucose 278 H Random Glucose 246 H Calcium 8.3 L D Phosphorus Magnesium Total Bilirubin AST ALT Alkaline Phosphatase Total Protein Albumin 04/23/24 11:29 WBC RBC Hgb Hct MCV MCH MCHC RDW Plt Count MPV Immature Gran % (Auto) Neut % (Auto) Lymph % (Auto) [place] % (Auto) Eos % (Auto) Baso % (Auto) Lymph # (Auto) [place] # (Auto) Eos # (Auto) Baso # (Auto) Abs Immat Gran (auto) Absolute Neuts (auto) Absolute Nucleated RBC Nucleated RBC % (auto) Smear Tech's Comments VBG pH VBG pCO2 VBG pO2 VBG HCO3 VBG O2 Saturation VBG Base Excess Sodium Potassium Chloride Carbon Dioxide Anion Gap BUN Creatinine Estim Creat Clear Calc Estimated GFR POC Glucose 234 H Random Glucose Calcium Phosphorus Magnesium Total Bilirubin AST ALT Alkaline Phosphatase Total Protein Albumin Microbiology Microbiology Results: Microbiology 04/21/24 10:24 Blood - Venous Blood Culture - Preliminary No growth after 48 hours. 04/21/24 10:59 Blood - Venous Blood Culture - Preliminary No growth after 24 hours. Quality Stroke Does the patient have a stroke diagnosis?: No VTE Prior VTE?: No VTE Risk Level:: Medical - moderate - high VTE Device Contraindication: N/A - Device Ordered VTE Drug Contraindication: Treatment Not Indicated
--- NOTE | 2024-04-23 13:25 | MHC.CM.PN ---
Pt continues care in ICU with anoxic brain stem injury: MD will discuss goals of care with family again today: Will await determination before approaching family for d/c planning needs
[2024-04-23 17:28] LABS: Glucose, Whole Blood 243 mg/dL (60-115)
[2024-04-23] MEDS: vancomycin HCL 1,000 MG in 0.9 % Sodium Chloride 250 ML 270 MG IV (17:54)
[2024-04-23] MEDS: Piperacillin Sodium/Tazobactam 3.375 GM in 0.9 % Sodium Chloride 50 ML IV (17:56)
[2024-04-23 18:12] LABS: COVID-19 Test Negative (Negative); IDNOW Serial# 08D9AD1C
[2024-04-23 18:12] LABS: Lactic Acid 2.4 mmol/L (0.5-2.0)
[2024-04-23] MEDS: DEXTROSE 5% IVCONT (18:14)
[2024-04-23] MEDS: NICARDIPINE HCL IVCONT (18:14)
[2024-04-23] MEDS: methylPREDNISolone Sod Succ 1,000 MG in 0.9 % Sodium Chloride 50 ML 66 MG IV (18:18)
[2024-04-23 18:19] LABS: Alanine Aminotransferase 114 U/L (0-31); Albumin Level 3.6 g/dL (3.5-5.0); Alkaline Phosphatase 85 U/L (39-117); Amylase 49 U/L (28-100); Anion Gap 19 (12-20); Aspartate Amino Transferase 62 U/L (5-31); Bilirubin Total 0.5 mg/dL (0.0-1.0); Blood Urea Nitrogen 34 mg/dL (9-16); Calcium 8.2 mg/dL (8.4-10.2); Carbon Dioxide 26 mmol/L (22-29); Chloride 107 mmol/L (96-108); Creatinine Clr Calc Pharmacy 10.5; Estimated Glomerular Filt Rate 9; Glucose Random 274 mg/dL (60-115); Lipase 45 U/L (8-78); Magnesium 2.1 mg/dL (1.6-2.6); Phosphorus 5.1 mg/dL (2.7-4.5); Potassium 3.8 mmol/L (3.3-5.1); Sodium 148 mmol/L (135-145); Total Protein 5.9 g/dL (6.5-8.0)
[2024-04-23 19:02] LABS: Hematocrit 29.4 % (37.0-47.0); Hemoglobin 9.5 g/dl (12.0-16.0); Mean Corpuscular HGB Conc 32.3 g/dl (31.0-35.0); Mean Corpuscular Hemoglobin 24.9 pg (27.0-33.0); NRBC Pct Auto 0.1 /100WBC (0.0-0.2); Platelet Count 129 X10*3/uL (160-400); Red Blood Count 3.82 X10*6/uL (4.20-5.50); Red Cell Distribution Width 19.6 % (11.0-16.0); White Blood Count 27.3 X10*3/uL (4.8-10.8)
[2024-04-23 19:30] LABS: Fibrinogen 625 MG/DL (259-690); Prothrombin Time 11.4 SEC (10.9-12.4)
[2024-04-23 19:32] LABS: D Dimer High Sensitivity 16671 NG/ML
--- NOTE | 2024-04-23 19:41 | PC.NURSE ---
case presented to [facility] as requested by [facility] declined
[2024-04-23 19:42] LABS: B Type Natriuretic Peptide 388 pg/mL (<100)
[2024-04-23 19:54] LABS: Reflex Lactate? Lactic Acid Added
[2024-04-23 20:58] LABS: Partial Thromboplastin Time 27.8 SEC (26.0-36.8)
[2024-04-23 21:10] LABS: ~Lactic Acid-LAB USE ONLY 2.5 mmol/L (0.5-2.0)
[2024-04-23 21:18] LABS: Bilirubin Direct 0.2 mg/dL (0.0-0.5)
[2024-04-23 21:40] LABS: Appearance Urine Cloudy; Color Urine Yellow; Glucose Urine UA 250 mg/dL (Negative); Leukocyte Esterase Urine Negative (Negative); Nitrite Urine Negative (Negative); PH 6.5 (5.0-9.0); Specific Gravity - Urine 1.015 (1.005-1.025); UMIC TRIGGER UA YES; Urine Blood Moderate (2+) (Negative); Urine Ketones Negative (Negative); Urine Protein 100 (2+) mg/dL (Neg-Trace)
[2024-04-23] MEDS: fentaNYL citrate/NS 1,000 MCG/100 ML PLAST..BAG 10 MCG IVCONT (21:48)
[2024-04-23 22:08] LABS: Reflex Lactate? 2 Y
[2024-04-23 23:15] LABS: ~Lactic Acid-LAB USE ONLY 3.5 mmol/L (0.5-2.0)
[2024-04-23 23:33] LABS: Bacteria Urine None Seen (None Seen); Granular Casts Urine Present; Hyaline Casts Urine 0-2 /LPF (0-2); RBC Urine 0-2 /HPF (0-2); WBC Urine 0-5 /HPF (0-5)
[2024-04-24] VITALS: BP 103/57; PULSE 75; RESP 22; TEMP 35.7; O2SAT 98; O2SAT 99
[2024-04-24] MEDS: Insulin Lispro 100 UNIT/ML 3 ML VIAL SUBCUT (00:11)
[2024-04-24] MEDS: 0.9 % Sodium Chloride Flush 3 ML SYRINGE IVFLUSH (00:12)
[2024-04-24 00:13] LABS: Glucose, Whole Blood 317 mg/dL (60-115)
[2024-04-24 01:07] VITALS: PULSE 70; RESP 22; O2SAT 98
[2024-04-24 02:05] VITALS: O2SAT 98
--- NOTE | 2024-04-24 02:34 | P.DN_ITS ---
Discharge Sum: Prov Provider Primary care physician: Unknown Physician Admitting clinician: Tony Stiles Attending physician on admission: Tony Stiles Consults: 04/23/24 07:58 Consult to [facility] ([facility]) Routine Consulting Provider: [facility] Pronouncing clinician: Kendall Julian Discharge Sum: Diag Contributing Factors (1) Metabolic acidosis: (2) Shock: (3) Hypoxic brain injury: (4) Cholelithiasis: (5) Cardiac arrest: (6) Pneumonia: (7) Acute respiratory failure: Discharge Sum: Summary Date and Time Date of admission: 04/21/24 11:06 Date of : 04/24/24 Time of : 02:22 Summary Details: ADMISSION/DISCHARGE DIAGNOSIS HYPOXIC BRAIN INJURY PROLONGED CARDIAC ARREST MULTI ORGAN FAILURE METABOLIC ACIDOSIS CARDIOGENIC SHOCK ASPIRATION PNEUMONITIS ACUTE RESPIRATORY FAILURE ANEMIA NOT OTHERWISE SPECIFIED THROMBOCYTOPENIA ACUTE KIDNEY INJURY HYPERPHOSPHATEMIA GLUCOSURIA AND PROTEINURIA HYPERTENSION HYPERLIPIDEMIA CONSTIPATION TOBACCO ABUSE INSOMNIA ANXIETY Reason of : ?Post Cardiac arrest and multi organ failure Extubated in the OR at [address] Cess: 0217 am Date and Time of : ?04/24/2024 at 0222 am HISTORY OF PRESENT ILLNESS/HOSPITAL COURSE: PATIENT WAS ADMITTED ON 04/21/2024 AFTER CARDIAC ARREST 64-year-old lady with underlying history of hypertrophic cardiomyopathy, diabetes mellitus, cerebral aneurysm being admitted after [id number] arrest with unclear down time as arrest was witnessed by family at home, but CPR was not started until EMS arrived and total resuscitation time until return of spontaneous circulation of over 1 hour including approximately 20 minutes in the emergency room. Initial CT head with significant hypoxic damage with loss of aly/white matter differentiation. CT chest with stigmata of pulmonary aspiration. Patient noted to have significant metabolic acidosis requiring pressor support, intubated during the CPR in the emergency room. Admitted to the intensive care unit. Patient was provided with ICU support including ventilatory support, labs were monitored closely and neuro checks were done per protocol.? Nephrotoxins were avoided, there was no need for transfusion.? CT of the head was performed and was reported us Apparent loss of aly-white differentiation concerning for hypoxic ischemic injury. Clinical correlation recommended. Family discussions had taken place and her daughter had made her DNI DNR, [employer], organ Cerner was called and a lengthy discussion happen among them and the patient's daughter who agreed to organ donation.? For protocol was followed.? The patient was initiated on fentanyl drip.? The request was made with the family agreement that the patient will be extubated in the OR to preserve perfusion and warm organ harvesting. Patient was extubated in the OR at 0205 am Asystole was noted at 0217 am. At this time, the patient has no heartbeat, no apical pulses, pupils are fixed at 5 mm bilaterally, overall that anterior chamber and cornea of the eyes appear glossy, no spontaneous breathing.? There is no corneal reflexes bilaterally. Patient was pronounced at?0222 am . Total time spent with the patient planning, coordinating, insuring a natural, non suffering and humane passing? as well as pronouncement evaluation, and this documentation was 90 minutes including 25 min in the OR. Case discussed with Dr Castañeda whois aware of all the above. IMAGES Radiologist's Impressions: Chest X-Ray 04/21/24 08:30 IMPRESSION: Enteric tube passes beneath diaphragm. Prominent heart, mediastinum and central vasculature on supine imaging. Electronically signed by: Bryant Beckett MD 04/21/2024 09:32 AM EDT RP Abdomen/Pelvis CT 04/21/24 09:54 IMPRESSION: 1. Heterogeneous hepatic enhancement with periportal and pericholecystic edema and fat stranding. Suspect congestive hepatopathy. Correlate with liver function studies. Consider right upper quadrant ultrasound. 2. Cholelithiasis. Thick-walled gallbladder. No biliary ductal dilation. Cannot exclude acute cholecystitis. 3. Mildly dilated small bowel loops with mesenteric fat stranding. No transition point to suggest obstruction. Favor ileus. 4. Bibasilar lung consolidation and effusions. Suspect aspiration pneumonia. Fleischner guidelines were followed. Electronically signed by: Bryant Beckett MD 04/21/2024 10:40 AM EDT RP Chest CTA 04/21/24 09:54 IMPRESSION: 1. No pulmonary embolism identified. Exam is degraded by artifact. 2. Extensive bilateral predominantly dependent lung consolidation with thick-walled airways. Aspiration pneumonia is a concern. 3. Increased right heart pressures with reflux of contrast into the IVC and hepatic veins. Consider echocardiography. Fleischner guidelines were followed. Electronically signed by: Bryant Beckett MD 04/21/2024 10:51 AM EDT RP Head CT 04/21/24 09:54 IMPRESSION: Apparent loss of aly-white differentiation concerning for hypoxic ischemic injury. Clinical correlation recommended. Further evaluation with MRI or follow-up CT imaging likely warranted. Electronically signed by: Be Suggs MD 04/21/2024 11:11 AM EDT RP Chest X-Ray 04/21/24 10:50 IMPRESSION: 1. Support apparatus in expected position. 2. Interval insertion of right-sided jugular catheter which terminates within the distal SVC Additional Data Attending physician: Tony Stiles MD
--- NOTE | 2024-04-24 02:39 | PC.NURSE ---
Addendum entered by Radha Bynum RN 04/24/24 02:51: correction TOD 0222 Original Note: pt brought to OR for [facility] procurement, extubated at 0205, asystole at 0217, TOD 0422, per Kendall ALONSO.
[2024-04-27 11:11] LABS: Glucose, Whole Blood 210 mg/dL (60-115)
== END 2024-04-24 02:22 | disposition expired | DRG 59 ==
LOC: HO.ED 09:51 → HO.EDOVER 11:13 → HO.ICU 11:17
PROVIDERS: Internal Medicine Critical Care Medicine; Physician Assistant; Physician Assistant Medical; Registered Nurse Community Health; Admitting Provider Internal Medicine Pulmonary Disease; Emergency Provider Internal Medicine; Visit Provider Internal Medicine Pulmonary Disease
DX: G93.1 Anoxic brain damage, not elsewhere classified (principal); I46.9 Cardiac arrest, cause unspecified; J96.01 Acute respiratory failure with hypoxia; J69.0 Pneumonitis due to inhalation of food and vomit; N17.0 Acute kidney failure with tubular necrosis; I27.20 Pulmonary hypertension, unspecified; E83.39 Other disorders of phosphorus metabolism; E87.20 Acidosis, unspecified; E11.9 Type 2 diabetes mellitus without complications; D64.9 Anemia, unspecified; I10 Essential (primary) hypertension; K59.00 Constipation, unspecified; F17.200 Nicotine dependence, unspecified, uncomplicated; F41.9 Anxiety disorder, unspecified; G47.00 Insomnia, unspecified; Z66 Do not resuscitate; Z51.5 Encounter for palliative care; I16.0 Hypertensive urgency; I35.1 Nonrheumatic aortic (valve) insufficiency; R57.0 Cardiogenic shock; I42.2 Other hypertrophic cardiomyopathy; Z20.822 Contact with and (suspected) exposure to COVID-19; Z79.82 Long term (current) use of aspirin; Z79.84 Long term (current) use of oral hypoglycemic drugs; Z79.899 Other long term (current) drug therapy
CPT/HCPCS: 0241U; 36415; 36600; 70450; 71045; 71275; 74177; 80048; 80053; 81001; 82040; 82150; 82248; 82803; 82947; 83605; 83690; 83735; 83880; 84100; 84484; 85007; 85025; 85027; 85379; 85384; 85610; 85730; 86850; 86900; 86901; 87040; 87635; 88304; 88305; 88307; 88331; 93005; 93306; 94002; 94003; 94640; 99283; C1758; J0171; J0295; J0613; J0696; J2250; J2310; J2404; J2543; J2598; J2919; J3010; J3370; J3475; J3480; P9047; Q9967

== ENCOUNTER → 2024-04-21 11:06 | Outpatient (BNV) | payer OTHER, SELFPAY | PROVIDERS: Admitting Provider Internal Medicine Pulmonary Disease; Emergency Provider Internal Medicine; Visit Provider Internal Medicine Pulmonary Disease | DX: G93.1 Anoxic brain damage, not elsewhere classified (principal); I46.9 Cardiac arrest, cause unspecified | CPT/HCPCS: 99291; 99292 ==

== ENCOUNTER → 2024-04-21 11:06 | Outpatient (BNV) | payer OTHER, SELFPAY | PROVIDERS: Admitting Provider Internal Medicine Pulmonary Disease; Emergency Provider Internal Medicine; Visit Provider Internal Medicine Critical Care Medicine | DX: I46.9 Cardiac arrest, cause unspecified (principal); R57.9 Shock, unspecified; G93.1 Anoxic brain damage, not elsewhere classified; E87.20 Acidosis, unspecified; K80.20 Calculus of gallbladder without cholecystitis without obstruction | CPT/HCPCS: 99239; 99291 ==